=== PATIENT | female | born 1935 | race Caucasian/White ===

== ENCOUNTER 2017-10-01 20:54 | Emergency (ER) | payer MEDICARE ==
[2017-10-01] MEDS ORDERED: Silver Nitrate/Potassium Nitr* 1 EA STICK ONE ×2 (21:16)
[2017-10-01] MEDS ORDERED: Lidocaine 2% JELLY* 6 ML JELLY TOPICAL ONE (21:22)
[2017-10-01] MEDS ORDERED: Amoxicillin/Clavulanate TAB* 875 MG PO ONE (21:33)
[2017-10-01 22:26] LABS: INR 3.97 (0.77-1.02)
--- NOTE | 2017-10-01 23:13 | ED ---
Mikel Arevalo Gabriel, scribed for Francisco Castelan MD on 10/01/17 at 2118 . Throat Pain/Nasal Congestion - HPI Summary HPI Summary: This patient is a 82 year old F BIBA to [facility] with a chief complaint of epistaxis that began 3 hours ago. Pt states she blew her nose then it began bleeding. Pt takes warfarin. - History of Current Complaint Chief Complaint: EDEpistaxis Time Seen by Provider: 10/01/17 21:06 Hx Obtained From: Patient Onset/Duration: Lasting Hours, Still Present Severity: Mild Cough: None - Allergies/Home Medications Allergies/Adverse Reactions: Allergies Allergy/AdvReac Type Severity Reaction Status Date / Time amoxicillin Allergy Nausea Verified 10/01/17 21:44 codeine Allergy Unknown Verified 10/01/17 21:44 Reaction Details iodine Allergy Swelling Verified 10/01/17 21:44 meperidine [From Demerol] Allergy Unknown Verified 10/01/17 21:44 Reaction Details morphine Allergy Unknown Verified 10/01/17 21:44 Reaction Details moxifloxacin [From Avelox] Allergy Unknown Verified 10/01/17 21:44 Reaction Details sertraline [From Zoloft] Allergy Unknown Verified 10/01/17 21:44 Reaction Details PMH/Surg Hx/FS Hx/Imm Hx Endocrine/Hematology History: Reports: 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 Denies: Hx Anticoagulant Therapy, Hx Systemic Lupus Erythematosus, Hx Thyroid Disease, Hx Anemia Cardiovascular History: Reports: Hx Angina, Hx Deep Vein Thrombosis, Hx Hypercholesterolemia, Hx Rheumatic Fever - as a child, Other Cardiovascular Problems/Disorders - pericarditis w surgical intervention to remove fluid. Denies: Hx Aneurysm, Hx Auto Implanted Cardiovert Defib, Hx Cardiac Arrest, Hx Congestive Heart Failure, Hx Coronary Artery Disease, Hx Hypertension, Hx Myocardial Infarction, Hx Pacemaker/ICD, Hx Valvular Heart Disease Respiratory History: Reports: Other Respiratory Problems/Disorders - SOB Denies: Hx Asthma, Hx Chronic Bronchitis, Hx Chronic Obstructive Pulmonary Disease (COPD), Hx Pneumonia GI History: Reports: Hx Diverticulosis, Hx Gastroesophageal Reflux Disease, Other GI Disorders - DIVERTICULOSIS Denies: Hx Gall Bladder Disease, Hx Irritable Bowel, Hx Ulcer History: Denies: Hx Dialysis, Hx Kidney Infection, Hx Kidney Stones, Hx Renal Disease Musculoskeletal History: Reports: Hx Arthritis, Hx Back Problems, Hx Bursitis, Hx Osteoporosis, Other Musculoskeletal History - Osteopenia, Osteoarthritis, Lymphedema in lower extremities bilaterally. Denies: Hx Rheumatoid Arthritis Sensory History: Reports: Hx Cataracts, Hx Contacts or Glasses, Hx Vision Problem Denies: Hx Eye Injury, Hx Eye Prosthesis, Hx Glaucoma, Hx Legally Blind, Hx Macular Degeneration, Hx Deafness, Hx Hearing Aid, Hx Hearing Problem Opthamlomology History: Reports: Hx Cataracts, Hx Contacts or Glasses, Hx Vision Problem Denies: Hx Eye Injury, Hx Eye Prosthesis, Hx Glaucoma, Hx Legally Blind, Hx Macular Degeneration Neurological History: Reports: Other Neuro Impairments/Disorders - low back pain , hx of back surgeries Denies: Hx Headaches, Hx Migraine, Hx Seizures Psychiatric History: Reports: Other Psychiatric Issues/Disorders - 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 RIGHT TOTAL KNEE REPLACEMENT , BILAT KNEE REPAIR;. BACK SURGERIES, RIGHT ANKLE ( SCREW IS NOW REMOVED);. RIGHT SHOULDER ROTATOR CUFF;. VECTASEAL;. BLADDER REPAIR ;. HYSTERECTOMY;. JASEN FILTER - 1.5T; Hx Anesthesia Reactions: No Infectious Disease History: Yes Infectious Disease History: Denies: Traveled Outside the [place] in Last 30 Days - Family History Known Family History: Positive: None Family History: R & n/C - Social History Lives: With Family Alcohol Use: Rare Alcohol Amount: none that pt identifies Hx Substance Use: No Substance Use Type: Reports: None Hx Tobacco Use: No Smoking Status (MU): Never Smoked Tobacco Have You Smoked in the Last Year: No Review of Systems Negative: Fever Positive: Epistaxis All Other Systems Reviewed And Are Negative: Yes Physical Exam - Summary Physical Exam Summary: VITAL SIGNS: Reviewed. GENERAL: Patient is a elderly obese female who is lying comfortable in the stretcher. Patient is not in any acute respiratory distress. HEAD AND FACE: No signs of trauma. No ecchymosis, hematomas or skull depressions. No sinus tenderness. EYES: PERRLA, EOMI x 2, No injected conjunctiva, no nystagmus. EARS: Hearing grossly intact. Ear canals and tympanic membranes are within normal limits. MOUTH: the right nostril is raw with no active bleeding NECK: Supple, trachea is midline, no adenopathy, no JVD, no carotid bruit, no c- spine tenderness, neck with full ROM. CHEST: Symmetric, no tenderness at palpation LUNGS: Clear to auscultation bilaterally. No wheezing or crackles. CVS: Regular rate and rhythm, S1 and S2 present, no murmurs or gallops appreciated. ABDOMEN: Soft, non-tender. No signs of distention. No rebound no guarding, and no masses palpated. Bowel sounds are normal. EXTREMITIES: FROM in all major joints bialteral LE edema with chronic venous stasis changes NEURO: Alert and oriented x 3. No acute neurological deficits. Speech is normal and follows commands. SKIN: Dry and warm Triage Information Reviewed: Yes Vital Signs On Initial Exam: Initial Vitals Temp Pulse Resp BP Pulse Ox 98.1 F 110 20 127/52 90 10/01/17 21:01 10/01/17 21:01 10/01/17 21:01 10/01/17 21:01 10/01/17 21:01 Vital Signs Reviewed: Yes Procedures - Procedure Summary Procedure Summary: I attempted to cauterize the right nostril with silver nitrate but it was unsuccessful. I placed a rhino rocket, 4.5cm Diagnostics - Vital Signs Vital Signs Temp Pulse Resp BP Pulse Ox 10/01/17 21:01 98.1 F 110 20 127/52 90 - Laboratory Lab Statement: Any lab studies that have been ordered have been reviewed, and results considered in the medical decision making process. Re-Evaluation - Re-Evaluation First Eval Re-Evaluation Time: 22:53 Change: Improved Comment: The patients bleeding is controlled, her INR is 3.97, and I discussed discharge with the patient. EENT Course/Dx - Course Assessment/Plan: This patient is a 82 year old F BIBA to [facility] with a chief complaint of epistaxis that began 3 hours ago. Pt states she blew her nose then it began bleeding. Pt takes warfarin. Test results with no significant abnormalities except for an APTT of 54. In the ED course the patient was given Augmentin, lidocaine, and silver nitrate. The bleeding was controlled with a rhino rocket, dx epistaxis. Patient will be discharged with prescription for Augmentin and follow up from ENT. The patient is agreeable with this plan. - Diagnoses Provider Diagnoses: Epistaxis Discharge - Sign-Out/Discharge Documenting (check all that apply): Discharge - Discharge Plan Condition: Stable Disposition: HOME Prescriptions: Amoxicillin/Clavulanate TAB* [Augmentin TAB 875*] 875 mg PO BID #14 tab Patient Education Materials: Nosebleed (ED) Referrals: Karson Massey MD [Medical Doctor] - 3 Days Additional Instructions: RETURN TO THE EMERGENCY DEPARTMENT FOR CHANGING OR WORSENING SYMPTOMS. The documentation as recorded by the Mikel feldman Gabriel accurately reflects the service I personally performed and the decisions made by , Francisco Castealn MD.
[2017-10-02 00:33] VITALS: BP 124/37
== END 2017-10-02 00:33 | disposition home or self-care (01) ==
LOC: ED 20:54
DX: R04.0 Epistaxis (principal); Z51.81 Encounter for therapeutic drug level monitoring; I82.409 Acute embolism and thrombosis of unspecified deep veins of unspecified lower extremity; Z79.01 Long term (current) use of anticoagulants
CPT/HCPCS: 36415; 85610; 85730; 99283; A9270-GY

== ENCOUNTER 2017-12-13 17:02 | Inpatient (IN) | payer MEDICARE ==
[2017-12-13] MEDS ORDERED: NS 0.9% 1000 ML* 1,000 ML IV ONE (17:46)
[2017-12-13 18:13] LABS: Hematocrit 30 % (35-47); Hemoglobin 9.3 g/dl (12.0-16.0); Mean Corpuscular HGB Conc 31 g/dl (31-36); Mean Corpuscular Hemoglobin 23 pg (27-31); Mean Corpuscular Volume 74 fL (80-97); Mean Platelet Volume 7.5 um3 (7.4-10.4); Platelet Count 334 10^3/ul (150-450); Red Blood Count 4.07 10^6/ul (4.00-5.40); Red Cell Distribution Width 17 % (10.5-15); White Blood Count 8.2 10^3/ul (3.5-10.8)
[2017-12-13 18:22] LABS: EGFR Non-African American 67.1 (>60)
[2017-12-13 18:40] LABS: ABS Basophils 0 10^3/ul (0-0.2); ABS Eosinophils 0.1 10^3/ul (0-0.6); ABS Lymphocytes 0.5 10^3/ul (1.0-4.8); ABS Monocytes 0.7 10^3/ul (0-0.8); ABS Neutrophils 6.9 10^3/ul (1.5-7.7); ABS Nucleated RBC 0 10^3/ul; Eosinophil % 1.1 % (0-6); Lymphocyte % 5.5 % (25-47); Nucleated Red Blood Cells % 0
--- NOTE | 2017-12-13 19:11 | RAD ---
INDICATION: Weakness. COMPARISON: Comparison is made with a prior study from January 23, 2016. TECHNIQUE: A portable view of the chest was obtained. FINDINGS: Cardiac and mediastinal contours appear to be within normal limits. The lungs are underinflated. There are small bibasilar infiltrates which appear similar to the prior study. IMPRESSION: LOW LUNG VOLUMES, SMALL BIBASILAR INFILTRATES.
[2017-12-13 19:28] LABS: Urine Appearance Clear; Urine Blood Negative (Negative); Urine Color Yellow; Urine Ketones Negative (Negative); Urine Protein Negative (Negative); Urine Urobilinogen Negative (Negative)
[2017-12-13] MEDS ORDERED: cefTRIAXone(*) 1 GM in NS 0.9% 50 ML* 50 ML IVPB ONE (19:30)
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
[2017-12-13] MEDS ORDERED: Ondansetron ODT TAB* 4 MG PO PRN (23:45)
[2017-12-13] MEDS ORDERED: Albuterol 2.5 MG/3 ML NEB.SOL* (0.083%) INH PRN (23:45)
[2017-12-14 00:01] LABS: Hematocrit for Retic CNT 30 % (35-47); Immature Retic Fraction 0.48; RBC Retic Count 4.08 10^6/ul (4.6-6.2)
[2017-12-14] MEDS: Warfarin TAB(*) 5 MG PO SCH ×2 (00:18→17:43)
[2017-12-14] MEDS: NS 0.9% 1000 ML* 1,000 ML IV SCH ×2 (01:54→23:10)
[2017-12-14] MEDS: HYDROmorphone TAB* 2 MG PO PRN ×3 (01:56→17:43)
[2017-12-14 07:24] LABS: EGFR Non-African American 72.1 (>60)
[2017-12-14 07:28] LABS: ABS Basophils 0 10^3/ul (0-0.2); ABS Eosinophils 0.2 10^3/ul (0-0.6); ABS Lymphocytes 0.8 10^3/ul (1.0-4.8); ABS Monocytes 0.8 10^3/ul (0-0.8); ABS Neutrophils 5.1 10^3/ul (1.5-7.7); ABS Nucleated RBC 0 10^3/ul; Eosinophil % 2.4 % (0-6); Hematocrit 29 % (35-47); Hemoglobin 8.9 g/dl (12.0-16.0); Lymphocyte % 11.6 % (25-47); Mean Corpuscular HGB Conc 31 g/dl (31-36); Mean Corpuscular Hemoglobin 23 pg (27-31); Mean Corpuscular Volume 74 fL (80-97); Mean Platelet Volume 7.8 um3 (7.4-10.4); Nucleated Red Blood Cells % 0; Platelet Count 318 10^3/ul (150-450); Red Blood Count 3.92 10^6/ul (4.00-5.40); Red Cell Distribution Width 17 % (10.5-15); White Blood Count 6.9 10^3/ul (3.5-10.8)
[2017-12-14] MEDS: Insulin LISPRO* 1 UNITS UNIT SUBCUT SCH ×4 (08:40→20:34)
[2017-12-14] MEDS: Omeprazole CAP* 20 MG PO SCH (08:59)
[2017-12-14] MEDS: Docusate CAP* 100 MG PO SCH ×2 (08:59→20:23)
[2017-12-14] MEDS: Spironolactone TAB* 25 MG PO SCH (08:59)
[2017-12-14] MEDS: Furosemide TAB* 40 MG PO SCH (08:59)
[2017-12-14] MEDS: Methadone TAB* 10 MG PO SCH ×3 (08:59→20:23)
[2017-12-14] MEDS: Saline NASAL SPRAY 0.65%* BTL BOTH NARES PRN (15:51)
[2017-12-14] MEDS: cefTRIAXone VIAL(*) 1,000 MG in NS 0.9% 50 ML* 50 ML IVPB SCH (20:10)
[2017-12-15] MEDS: HYDROmorphone TAB* 2 MG PO PRN ×3 (00:01→08:13)
[2017-12-15] MEDS: Omeprazole CAP* 20 MG PO SCH ×2 (08:14→17:41)
[2017-12-15] MEDS: Furosemide TAB* 40 MG PO SCH (08:14)
[2017-12-15] MEDS: Docusate CAP* 100 MG PO SCH ×2 (08:14→20:10)
[2017-12-15] MEDS: Methadone TAB* 10 MG PO SCH ×3 (08:15→20:10)
[2017-12-15] MEDS: Spironolactone TAB* 25 MG PO SCH (08:15)
[2017-12-15] MEDS: Insulin LISPRO* 1 UNITS UNIT SUBCUT SCH ×4 (08:15→20:59)
[2017-12-15] MEDS ORDERED: HYDROmorphone TAB* 4 MG PO PRN (13:00)
[2017-12-15] MEDS: Ferrous Sulfate TAB* 325 MG PO SCH (13:16)
[2017-12-15] MEDS: Warfarin TAB(*) 5 MG PO SCH (17:41)
[2017-12-15] MEDS: cefTRIAXone VIAL(*) 1,000 MG in NS 0.9% 50 ML* 50 ML IVPB SCH (20:27)
[2017-12-15] MEDS: Acetaminophen TAB* 325 MG PO PRN (21:48)
[2017-12-15] MEDS: Melatonin 3 MG TAB PO PRN (21:49)
[2017-12-15] MEDS ORDERED: HYDROmorphone INJ* 2 MG/ML CARPUJECT SYRINGE IV ONE (23:00)
[2017-12-16] MEDS: Saline NASAL SPRAY 0.65%* BTL BOTH NARES PRN ×2 (00:07→21:51)
[2017-12-16 00:08] LABS: INR 2.61 (0.77-1.02)
[2017-12-16] MEDS ORDERED: HYDROmorphone TAB* 4 MG PO PRN (01:02)
[2017-12-16] MEDS: HYDROmorphone INJ* 2 MG/ML CARPUJECT SYRINGE IV PRN ×2 (04:21→10:53)
[2017-12-16] MEDS: Acetaminophen TAB* 325 MG PO PRN (05:54)
[2017-12-16 06:04] LABS: Hematocrit 30 % (35-47); Hemoglobin 9.4 g/dl (12.0-16.0); Mean Corpuscular HGB Conc 31 g/dl (31-36); Mean Corpuscular Hemoglobin 23 pg (27-31); Mean Corpuscular Volume 74 fL (80-97); Mean Platelet Volume 7.8 um3 (7.4-10.4); Platelet Count 332 10^3/ul (150-450); Red Blood Count 4.08 10^6/ul (4.00-5.40); Red Cell Distribution Width 17 % (10.5-15); White Blood Count 14.9 10^3/ul (3.5-10.8)
[2017-12-16 06:15] LABS: EGFR Non-African American 76.7 (>60)
--- NOTE | 2017-12-16 07:44 | RAD ---
HISTORY: chest pain COMPARISONS: August 15, 2017 VIEWS: 1: frontal portable view of the chest at 11:20 PM FINDINGS: LINES AND TUBES: None. CARDIOMEDIASTINAL SILHOUETTE: The cardiomediastinal silhouette is stable. PLEURA: The costophrenic angles are sharp. No pleural abnormalities are noted. LUNG PARENCHYMA: There has been progression of confluent alveolar opacification of the right lung base. There is persistent patchy alveolar opacification of the left lung base, stable. ABDOMEN: The upper abdomen is clear. There is no subphrenic gas. BONES AND SOFT TISSUES: There is postsurgical change to the right shoulder. IMPRESSION: PROGRESSION OF RIGHT LOWER LUNG CONSOLIDATION. PERSISTENT LEFT LOWER LUNG ATELECTASIS VERSUS CONSOLIDATION
[2017-12-16] MEDS: Ferrous Sulfate TAB* 325 MG PO SCH (10:06)
[2017-12-16] MEDS: Docusate CAP* 100 MG PO SCH ×2 (10:06→21:35)
[2017-12-16] MEDS: Furosemide TAB* 40 MG PO SCH (10:06)
[2017-12-16] MEDS: Spironolactone TAB* 25 MG PO SCH (10:06)
[2017-12-16] MEDS: HYDROmorphone TAB* 4 MG PO PRN (10:07)
[2017-12-16] MEDS: Methadone TAB* 10 MG PO SCH ×3 (10:07→21:35)
[2017-12-16] MEDS: Insulin LISPRO* 1 UNITS UNIT SUBCUT SCH ×4 (10:12→21:30)
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
[2017-12-16] MEDS ORDERED: Ondansetron 40 MG VIAL* 2 MG/ML 20 ML VIAL IV PRN (10:53)
[2017-12-16] MEDS: Metoprolol Succinate XL TAB* 25 MG PO SCH (13:12)
[2017-12-16] MEDS: Azithromycin TAB* 250 MG PO SCH (13:13)
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
--- NOTE | 2017-12-16 16:45 | ECHO ---
Patient: ASAD FINNEGAN [facility] Rec#: [id number] : 1935 Date: 12/16/2017 Age: 82y Height: 154.94 cm / 61.0 in Weight: 118.84 kg / 261.9 lbs Sex: F BSA: 2.12 Room#: [facility] Admit Date#: 12/14/2017 Type: Inpatient Referring: Tristen Hayden MD Reading: Mike Gaitan MD [employer] Associate: Mia Cha,RDCS,RDMS CC: Samara Hackett MD Transthoracic Echocardiogram Indication: CP BP: 145/70 HR: 85 Rhythm: NSR Findings History: Bilateral lower extremity lymphedema, factor V Leiden, DVT/PE, COPD, DM, HLD, pericarditis Technical Comments: The study quality is fair. Left Ventricle: The left ventricular chamber size is normal. Mild to moderate concentric left ventricular hypertrophy is observed. Global left ventricular wall motion and contractility are within normal limits. Left ventricular systolic function is at the lower limits of normal. The estimated ejection fraction is 50-55%. There is septal flattening of the interventricular septum consistent with right ventricular volume or pressure overload. Abnormal left ventricular diastolic filling is observed, consistent with impaired relaxation. Left Atrium: The left atrium is mildly dilated. Right Ventricle: The right ventricular chamber size and systolic function are within normal limits. The right ventricle wall thickness is mildly increased. The right ventricular free wall has increased brightness. Right Atrium: The right atrium is not well visualized. Aortic Valve: There is no evidence of aortic valve thickening. Systolic excursion of the aortic valve is normal. There is a trace of aortic regurgitation. There is no evidence of aortic stenosis. Mitral Valve: Mild mitral annular calcification present. There is a trace of mitral regurgitation. There is no evidence of mitral stenosis. Tricuspid Valve: The tricuspid valve leaflets are normal. There is trace tricuspid regurgitation. There is evidence of mild pulmonary hypertension. Pulmonic Valve: The pulmonic valve structure is not well visualized. There is no evidence of pulmonic valve thickening. There is mild pulmonic regurgitation. Pericardium: There is no significant pericardial effusion. Aorta: The ascending aorta is not well visualized. There is no dilatation of the aortic arch. The aortic root is normal in size. Pulmonary Artery: The main pulmonary artery is not well visualized. Venous: The inferior vena cava appears normal in size. There is a greater than 50% respiratory change in the inferior vena cava dimension. Summary: There are no significant changes when compared to the previous study done on 12/22/13 Conclusions The study quality is fair. Mild to moderate concentric left ventricular hypertrophy is observed. The estimated ejection fraction is 50-55%. Global left ventricular wall motion and contractility are within normal limits. Left ventricular systolic function is at the lower limits of normal. The estimated ejection fraction is 50-55%. The right ventricular chamber size and systolic function are within normal limits. There is no evidence of aortic valve thickening. There is a trace of aortic regurgitation. There is a trace of mitral regurgitation. The tricuspid valve leaflets are normal. There is trace tricuspid regurgitation. There is evidence of mild pulmonary hypertension. There is no significant pericardial effusion. The ascending aorta is not well visualized. Measurements Name Value Normal Range RVIDd (AP) 2D 2.9 cm (0.9 - 2.6) RVDdMajor (2D) 3 cm (2.2 - 4.4) IVSd (2D) 1.4 cm (0.6 - 1) LVPWd (2D) 1.3 cm (0.6 - 1) LVIDd (2D) 4.2 cm (3.6 - 5.4) LVIDs (2D) 2.3 cm - LV FS (2D) 45 % (25 - 45) Aortic Annulus 2 cm (1.4 - 2.6) Ao root diameter (2D) 2.9 cm (2.1 - 3.5) Aortic arch 3.2 cm (1.8 - 3.4) LA dimension (AP) 2D 4.3 cm (2.3 - 3.8) LAd ISD 4CH 5.4 cm (2.9 - 5.3) LA ISD 4CH W 4.6 cm (2.5 - 4.5) Name Value Normal Range LA ESV SP 4CH (A/L) 60.34 ml - LA ESV SP 2CH (A/L) 70.67 ml - LA ESV BP (A/L) 67.14 ml - LA ESV BP (A/L) index 32 ml/m2 - LA ESV SP 4CH (MOD) 57.31 ml - LA ESV SP 2CH (MOD) 68.69 ml - Name Value Normal Range MV E-wave Vmax 0.8 m/sec - MV deceleration time 137 msec - MV A-wave Vmax 1 m/sec - MV E:A ratio 0.8 ratio - LV septal e' Vmax 0.06 m/sec - LV lateral e' Vmax 0.07 m/sec - LV E:e' septal ratio 14.5 ratio - LV E:e' lateral ratio 11 ratio - Name Value Normal Range AV Vmax 1.8 m/sec - AV VTI 35 cm - AV peak gradient 13 mmHg - AV mean gradient 6.8 mmHg - LVOT Vmax 1.1 m/sec - LVOT VTI 21.7 cm - LVOT peak gradient 5 mmHg - LVOT mean gradient 2.6 mmHg - CHAITANYA Vmax 0.6 m/sec - Name Value Normal Range MV Vmax 1.1 m/sec - MV VTI 29.5 cm - MV peak gradient 5 mmHg - MV mean gradient 2 mmHg - MV PHT 60 msec - MVA (PHT) 3.7 cm2 - Name Value Normal Range TR Vmax 2.6 m/sec - TR peak gradient 27 mmHg - RAP 15 mmHg - RVSP 42 mmHg - IVC diameter 2.3 cm - Name Value Normal Range PV Vmax 0.7 m/sec - PV peak gradient 2 mmHg -
[2017-12-16] MEDS: Omeprazole CAP* 20 MG PO SCH (18:18)
[2017-12-16] MEDS: Warfarin TAB(*) 5 MG PO SCH (18:18)
[2017-12-16] MEDS: cefTRIAXone VIAL(*) 1,000 MG in NS 0.9% 50 ML* 50 ML IVPB SCH (21:35)
[2017-12-17] MEDS: HYDROmorphone TAB* 4 MG PO PRN ×3 (00:59→17:37)
[2017-12-17] MEDS: Acetaminophen TAB* 325 MG PO PRN (02:15)
[2017-12-17 05:55] LABS: Hematocrit 30 % (35-47); Hemoglobin 9.2 g/dl (12.0-16.0); Mean Corpuscular HGB Conc 31 g/dl (31-36); Mean Corpuscular Hemoglobin 23 pg (27-31); Mean Corpuscular Volume 75 fL (80-97); Mean Platelet Volume 7.7 um3 (7.4-10.4); Platelet Count 339 10^3/ul (150-450); Red Blood Count 3.98 10^6/ul (4.00-5.40); Red Cell Distribution Width 18 % (10.5-15); White Blood Count 10.7 10^3/ul (3.5-10.8)
[2017-12-17 06:18] LABS: EGFR Non-African American 79.2 (>60)
[2017-12-17] MEDS: Insulin LISPRO* 1 UNITS UNIT SUBCUT SCH ×4 (08:46→20:45)
[2017-12-17] MEDS: Azithromycin TAB* 250 MG PO SCH (08:59)
[2017-12-17] MEDS: Metoprolol Succinate XL TAB* 25 MG PO SCH (08:59)
[2017-12-17] MEDS: Docusate CAP* 100 MG PO SCH ×2 (09:00→20:41)
[2017-12-17] MEDS: Spironolactone TAB* 25 MG PO SCH (09:00)
[2017-12-17] MEDS: Furosemide TAB* 40 MG PO SCH (09:00)
[2017-12-17] MEDS: Methadone TAB* 10 MG PO SCH ×3 (09:00→20:41)
[2017-12-17] MEDS: Ferrous Sulfate TAB* 325 MG PO SCH (09:00)
[2017-12-17] MEDS: Omeprazole CAP* 20 MG PO SCH (17:31)
[2017-12-17] MEDS: Warfarin TAB(*) 5 MG PO SCH (17:31)
[2017-12-17] MEDS: cefTRIAXone VIAL(*) 1,000 MG in NS 0.9% 50 ML* 50 ML IVPB SCH (20:41)
[2017-12-18] MEDS: Acetaminophen TAB* 325 MG PO PRN (02:57)
[2017-12-18] MEDS: HYDROmorphone TAB* 4 MG PO PRN ×3 (02:57→17:08)
[2017-12-18] MEDS: Insulin LISPRO* 1 UNITS UNIT SUBCUT SCH ×4 (07:27→20:37)
[2017-12-18] MEDS: Azithromycin TAB* 250 MG PO SCH (07:50)
[2017-12-18] MEDS: Spironolactone TAB* 25 MG PO SCH (07:50)
[2017-12-18] MEDS: Ferrous Sulfate TAB* 325 MG PO SCH (07:50)
[2017-12-18] MEDS: Metoprolol Succinate XL TAB* 25 MG PO SCH (07:50)
[2017-12-18] MEDS: Furosemide TAB* 40 MG PO SCH (07:50)
[2017-12-18] MEDS: Methadone TAB* 10 MG PO SCH ×3 (07:51→20:37)
[2017-12-18] MEDS: Docusate CAP* 100 MG PO SCH ×2 (07:51→20:37)
--- NOTE | 2017-12-18 10:46 | RAD ---
INDICATION: 82-year-old. Follow-up infiltrates COMPARISON: Chest x-ray December 15, 2017 TECHNIQUE: PA and lateral dual-energy views were obtained. FINDINGS: Bones/Soft Tissues: There are no acute bony findings. There is osteopenia with kyphosis Cardiomediastinal: The cardiac silhouette, central pulmonary vessels, and interstitium are prominent compatible with interstitial congestion. Lungs: There is no focal consolidation. Pleura: There are bilateral pleural effusions. Other: None IMPRESSION: VASCULAR CONGESTIVE FINDINGS WITH BILATERAL PLEURAL EFFUSIONS. GIVEN THE DIFFUSE FINDINGS, COEXISTENT INFILTRATES ARE NOT EXCLUDED RADIOGRAPHICALLY. THERE APPEARS BE MILD INTERVAL WORSENING.
[2017-12-18] MEDS: Polyethylene Glycol 3350* 17 GM PACKET PO PRN (14:25)
[2017-12-18] MEDS: Albuterol HFA INHALER* 8 gm MDI INH PRN (14:27)
[2017-12-18] MEDS: Warfarin TAB(*) 5 MG PO SCH (17:07)
[2017-12-18] MEDS: Omeprazole CAP* 20 MG PO SCH (17:07)
[2017-12-18] MEDS: Saline NASAL SPRAY 0.65%* BTL BOTH NARES PRN ×2 (19:49→23:42)
[2017-12-18] MEDS: cefTRIAXone VIAL(*) 1,000 MG in NS 0.9% 50 ML* 50 ML IVPB SCH (20:37)
[2017-12-19] MEDS: Acetaminophen TAB* 325 MG PO PRN (01:20)
[2017-12-19] MEDS: Melatonin 3 MG TAB PO PRN (01:22)
[2017-12-19] MEDS: HYDROmorphone TAB* 4 MG PO PRN (03:06)
[2017-12-19 06:50] LABS: INR 4.45 (0.77-1.02)
[2017-12-19] MEDS: Insulin LISPRO* 1 UNITS UNIT SUBCUT SCH ×4 (09:36→21:27)
[2017-12-19] MEDS: Methadone TAB* 10 MG PO SCH ×3 (09:37→21:26)
[2017-12-19] MEDS: Azithromycin TAB* 250 MG PO SCH (09:39)
[2017-12-19] MEDS: Metoprolol Succinate XL TAB* 25 MG PO SCH (09:39)
[2017-12-19] MEDS: Polyethylene Glycol 3350* 17 GM PACKET PO PRN (09:41)
--- NOTE | 2017-12-19 10:02 | PN ---
Progress Note - Progress Note Date of Service: 12/19/17 SOAP: Subjective: CC: leukocytosis HPI: 82 year old woman with lymphedema, incr WBC and CRP and incr O2 requirement. She has had antibiotics for a few days. Previous chest pain is gone, no cough. Feels more energy and appetite improved. No rash or diarrhea. Objective: Vital Signs Temp 37.1 C 12/19/17 03:01 Pulse 68 12/19/17 09:02 Resp 20 12/19/17 09:37 BP 131/67 12/19/17 03:01 Pulse Ox 95 12/19/17 09:02 Intake & Output 12/18/17 12/19/17 12/19/17 18:59 06:59 18:59 Intake Total 120 480 Output Total 500 Balance 120 -20 Weight 251 lb 14.4 oz Intake: IV Fluids 30 NS (0.9%) 30 IVPB 50 ABX - CEFTRIAXONE 50 Oral 120 400 Output: Urine 500 Other: Estimated Void Large Large # Bowel Movements 2 Estimated Stool Amount Medium # Voids 8 3 Gen:awake, no distress HEENT: no thrush Heart:RRR no murmur Lungs:no wheeze or rale Abd:+BS NTND soft Skin: no rash MSK: no spine tenderness Assessment: 1. Community acquired pneumonia, with leukocytosis and incr CRP both improving 2. Bilateral LE lymphedema 3. morbid obesity 4. chronic hypoxemic resp failure Plan: 1. ceftriaxone day 11/04 and azithro day 10/03 (ordered) Discussed with Dr Hackett
[2017-12-19] MEDS: Ferrous Sulfate TAB* 325 MG PO SCH (10:09)
[2017-12-19] MEDS: Spironolactone TAB* 25 MG PO SCH (10:10)
[2017-12-19] MEDS: Furosemide TAB* 40 MG PO SCH (10:10)
[2017-12-19] MEDS: Docusate CAP* 100 MG PO SCH ×2 (10:10→21:26)
[2017-12-19] MEDS: Magnesium Hydroxide LIQ* 30 ML UDC PO SCH (13:09)
[2017-12-19] MEDS: Saline NASAL SPRAY 0.65%* BTL BOTH NARES PRN (14:56)
[2017-12-19] MEDS: Omeprazole CAP* 20 MG PO SCH (17:02)
[2017-12-19] MEDS: HYDROmorphone INJ* 2 MG/ML CARPUJECT SYRINGE IV PRN (17:03)
[2017-12-19] MEDS: cefTRIAXone VIAL(*) 1,000 MG in NS 0.9% 50 ML* 50 ML IVPB SCH (20:21)
[2017-12-19] MEDS: Albuterol HFA INHALER* 8 gm MDI INH PRN (23:24)
[2017-12-20] MEDS: HYDROmorphone TAB* 4 MG PO PRN ×2 (00:59→19:53)
[2017-12-20] MEDS: Insulin LISPRO* 1 UNITS UNIT SUBCUT SCH ×4 (08:20→21:11)
[2017-12-20] MEDS: Azithromycin TAB* 250 MG PO SCH ×2 (10:02→13:08)
[2017-12-20] MEDS: Spironolactone TAB* 25 MG PO SCH (10:03)
[2017-12-20] MEDS: Docusate CAP* 100 MG PO SCH ×2 (10:04→21:00)
[2017-12-20] MEDS: Ferrous Sulfate TAB* 325 MG PO SCH (10:41)
[2017-12-20] MEDS: Furosemide TAB* 40 MG PO SCH (10:41)
[2017-12-20] MEDS: Methadone TAB* 10 MG PO SCH ×3 (10:42→20:51)
[2017-12-20] MEDS: Magnesium Hydroxide LIQ* 30 ML UDC PO SCH (10:43)
[2017-12-20] MEDS: Metoprolol Succinate XL TAB* 25 MG PO SCH (13:20)
[2017-12-20 14:24] LABS: INR 2.88 (0.77-1.02)
[2017-12-20 14:32] LABS: Hematocrit 36 % (35-47); Hemoglobin 11.1 g/dl (12.0-16.0); Mean Corpuscular HGB Conc 31 g/dl (31-36); Mean Corpuscular Hemoglobin 23 pg (27-31); Mean Corpuscular Volume 75 fL (80-97); Mean Platelet Volume 7.7 um3 (7.4-10.4); Platelet Count 449 10^3/ul (150-450); Red Blood Count 4.79 10^6/ul (4.00-5.40); Red Cell Distribution Width 17 % (10.5-15); White Blood Count 7.2 10^3/ul (3.5-10.8)
[2017-12-20 14:35] LABS: EGFR Non-African American 80.5 (>60)
[2017-12-20] MEDS ORDERED: Warfarin TAB(*) 2.5 MG PO ONE (17:00)
[2017-12-20] MEDS: Omeprazole CAP* 20 MG PO SCH (17:06)
[2017-12-20] MEDS: cefTRIAXone VIAL(*) 1,000 MG in NS 0.9% 50 ML* 50 ML IVPB SCH (19:48)
[2017-12-21 06:41] LABS: INR 2.18 (0.77-1.02)
[2017-12-21] MEDS: Insulin LISPRO* 1 UNITS UNIT SUBCUT SCH ×4 (08:56→20:54)
[2017-12-21] MEDS: Azithromycin TAB* 250 MG PO SCH (09:02)
[2017-12-21] MEDS: Ferrous Sulfate TAB* 325 MG PO SCH (09:05)
[2017-12-21] MEDS: Docusate CAP* 100 MG PO SCH ×2 (09:06→20:55)
[2017-12-21] MEDS: Spironolactone TAB* 25 MG PO SCH (09:08)
[2017-12-21] MEDS: Metoprolol Succinate XL TAB* 25 MG PO SCH (09:10)
[2017-12-21] MEDS: Furosemide TAB* 40 MG PO SCH (09:12)
[2017-12-21] MEDS: Methadone TAB* 10 MG PO SCH (09:16)
[2017-12-21] MEDS: Magnesium Hydroxide LIQ* 30 ML UDC PO SCH (09:21)
--- NOTE | 2017-12-21 11:52 | PN ---
Subjective - Subjective Reason for Note: Progress Note History: I am following Asad Dolan over the weekend as an attending physician in Dr. Samara Hackett's absence. She has signed her out in detail. She has a UTI and chronic lymphedema. She is receiving IV antibacterials. Today, she doesn't have any pain. She has no adverse effects of antibacterials. She is not having any new pain. She has chronic lymphedema of her legs. She is not coughing or bringing up sputum. 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 GERD (gastroesophageal reflux disease) (Chronic) K21.9 History of pulmonary embolism (Chronic) Z86.711 Iron deficiency anemia (Chronic) D50.9 Low back pain (Chronic) M54.5 Lymphedema of both lower extremities (Chronic) I89.0 Morbid obesity with BMI of 45.0-49.9, adult (Chronic) E66.01, Z68.42 Osteoarthritis (Chronic) M19.90 T2DM (type 2 diabetes mellitus) (Chronic) Warfarin anticoagulation (Chronic) Z79.01 Current Medications: Current Medications Acetaminophen (Tylenol Tab*) 650 mg PO Q6H PRN PRN Reason: FEVER/PAIN Last Admin: 12/19/17 01:20 Dose: 650 mg Albuterol (Ventolin 2.5 Mg/3 Ml Neb.Marie*) 2.5 mg INH Q2H PRN PRN Reason: SOB/WHEEZING Albuterol (Ventolin Hfa Inhaler*) 2 puff INH Q4H PRN PRN Reason: SHORTNESS OF BREATH Last Admin: 12/19/17 23:24 Dose: 2 puff Azithromycin (Zithromax Tab*) 250 mg PO DAILY [facility] Last Admin: 12/21/17 09:02 Dose: 250 mg Docusate Sodium (Colace Cap*) 200 mg PO BID [facility] Last Admin: 12/21/17 09:06 Dose: 200 mg Ferrous Sulfate (Ferrous Sulfate Tab*) 325 mg PO DAILY [facility] Last Admin: 12/21/17 09:05 Dose: 325 mg Furosemide (Lasix Tab*) 80 mg PO DAILY [facility] Last Admin: 12/21/17 09:12 Dose: 80 mg Hydromorphone HCl (Dilaudid Inj*) 2 mg IV Q4H PRN PRN Reason: PAIN Last Admin: 12/19/17 17:03 Dose: 2 mg Hydromorphone HCl (Dilaudid Tab*) 8 mg PO Q4H PRN PRN Reason: PAIN Last Admin: 12/20/17 19:53 Dose: 8 mg Ceftriaxone Sodium 1,000 mg/ (Sodium Chloride) 50 mls @ 200 mls/hr IVPB Q24H [facility] Stop: 12/21/17 23:59 Last Admin: 12/20/17 19:48 Dose: 200 mls/hr Insulin Human Lispro (Humalog*) 0 units SUBCUT ACHS [facility]; Protocol Last Admin: 12/21/17 08:56 Dose: 2 unit Magnesium Hydroxide (Milk Of Magnesia Liq*) 30 ml PO DAILY [facility] Last Admin: 12/21/17 09:21 Dose: Not Given Melatonin (Melatonin) 3 mg PO BEDTIME PRN; Protocol PRN Reason: Sleep Last Admin: 12/19/17 01:22 Dose: 3 mg Metoprolol Succinate (Toprol Xl Tab*) 25 mg PO DAILY [facility] Last Admin: 12/21/17 09:10 Dose: 25 mg Omeprazole (Prilosec Cap*) 20 mg PO 1630 [facility] Last Admin: 12/20/17 17:06 Dose: 20 mg Ondansetron HCl (Zofran Odt Tab*) 4 mg PO Q6H PRN PRN Reason: n/v Ondansetron HCl (Zofran 40 Mg Vial*) 4 mg IV Q4H PRN PRN Reason: NAUSEA Pharmacy Profile Note (Coumadin Daily Reminder*) 1 note FOLLOW UP 1700 [facility] Last Admin: 12/20/17 17:07 Dose: 1 note Polyethylene Glycol/Electrolytes (Miralax*) 17 gm PO DAILY PRN PRN Reason: CONSTIPATION Last Admin: 12/19/17 09:41 Dose: 17 gm Sodium Chloride (Sodium Chloride 0.65% Nasal [place]*) 2 spray BOTH NARES Q4H PRN PRN Reason: NASAL CONGESTION Last Admin: 12/19/17 14:56 Dose: 2 spray Spironolactone (Aldactone Tab*) 50 mg PO DAILY [facility] Last Admin: 12/21/17 09:08 Dose: 50 mg Home Medications: Home Medications Medication Instructions Recorded Confirmed Type HYDROmorphone TAB* [Dilaudid TAB*] 2 mg PO Q4HR PRN 06/26/12 12/13/17 History Methadone TAB* [Dolophine TAB*] 20 mg PO TID 06/26/12 12/13/17 History Furosemide TAB* [Lasix TAB*] 80 mg PO DAILY 08/26/13 12/13/17 History Albuterol HFA INHALER* [Ventolin 2 puff INH Q4H PRN 11/23/14 12/13/17 History HFA Inhaler*] Omeprazole CAP* [PriLOSEC CAP*] 20 mg PO DAILY 11/23/14 12/13/17 History Polyethylene Glycol 3350* 17 gm PO DAILY PRN 11/23/14 12/13/17 History [Miralax*] Spironolactone TAB* [Aldactone 50 mg PO DAILY 11/23/14 12/13/17 History TAB*] E44-Hqozlv 1 tab PO DAILY 02/14/16 12/13/17 History Cholecalciferol TAB* [Vitamin D 50,000 tab PO WEEKLY 02/14/16 12/13/17 History TAB*] Warfarin TAB(*) [Coumadin TAB(*)] 5 mg PO 1700 02/14/16 12/13/17 History hydrOXYzine HCL TAB* [Atarax 10 MG 10 tab PO Q4HR PRN 02/14/16 12/13/17 History TAB*] Amoxicillin/Clavulanate TAB* 875 mg PO BID #14 tab 10/01/17 12/13/17 Rx [Augmentin TAB 875*] Allergies: Allergies Allergy/AdvReac Type Severity Reaction Status Date / Time codeine Allergy Unknown Verified 12/13/17 17:27 Reaction Details iodine Allergy Swelling Verified 12/13/17 17:27 meperidine [From Demerol] Allergy Unknown Verified 12/13/17 17:27 Reaction Details morphine Allergy Unknown Verified 12/13/17 17:27 Reaction Details moxifloxacin [From Avelox] Allergy Unknown Verified 12/13/17 17:27 Reaction Details sertraline [From Zoloft] Allergy Unknown Verified 12/13/17 17:27 Reaction Details amoxicillin AdvReac Nausea Verified 12/13/17 23:17 Objective - Vital Signs Vital Signs: Vital Signs 06/12/20/17 12/20/17 12:15 12:24 12:45 Temperature 98.0 F Pulse Rate 73 Respiratory 18 18 Rate Blood Pressure 123/53 (mmHg) O2 Sat by Pulse 97 Oximetry 12/20/17 12/20/17 12/20/17 14:37 15:15 16:40 Temperature 97.4 F Pulse Rate 69 Respiratory 20 18 20 Rate Blood Pressure 113/56 (mmHg) O2 Sat by Pulse 95 Oximetry 12/20/17 12/20/17 12/20/17 19:53 20:00 20:51 Temperature Pulse Rate Respiratory 18 18 18 Rate Blood Pressure (mmHg) O2 Sat by Pulse Oximetry 12/20/17 12/20/17 12/21/17 22:34 22:45 03:01 Temperature 98.5 F 97.8 F Pulse Rate 73 64 Respiratory 18 18 Rate Blood Pressure 132/61 119/45 (mmHg) O2 Sat by Pulse 97 94 Oximetry 12/21/17 12/21/17 12/21/17 03:51 07:30 08:00 Temperature Pulse Rate 73 Respiratory 16 16 Rate Blood Pressure 125/63 (mmHg) O2 Sat by Pulse 95 99 Oximetry 12/21/17 12/21/17 08:09 09:16 Temperature 98.5 F Pulse Rate Respiratory 16 Rate Blood Pressure (mmHg) O2 Sat by Pulse Oximetry - Intake and Output Intake and Output: Intake & Output 12/18/17 12/19/17 12/20/17 12/21/17 11:59 11:59 11:59 11:59 Intake Total 293 763 9878 470 Output Total 500 1150 650 Balance 570 100 790 -180 Weight 256 lb 12.8 oz 251 lb 14.4 oz 253 lb 6.4 oz 251 lb 1.6 oz Intake: IV Fluids 30 30 20 NS (0.9%) 30 30 20 IVPB 50 50 60 50 ABX - CEFTRIAXONE 50 50 60 50 Oral 374 424 8330 400 Output: Urine 500 1150 650 Other: Estimated Void Large Large Large Large Date of Last Bowel 12/20/17 Movement # Bowel Movements 0 2 0 1 Estimated Stool Amount Medium Medium Small # Voids 1 3 1 1 ADLs: Meal Record Start: 12/13/17 23: 10 Freq: DAILY@0900,1400,1800 Status: Active Protocol: Created 12/13/17 23:10 System (Rec: 12/13/17 23:10 System MED-M03) Document 12/14/17 09:00 [id number] (Rec: 12/14/17 13:12 [id number] MED-M02) Document 12/14/17 14:00 UKQ2945 (Rec: 12/14/17 14:24 [id number] MED-C09) Document 12/14/17 18:00 [id number] (Rec: 12/14/17 22:16 [id number] MED-C09) Document 12/15/17 09:00 YLJ2199 (Rec: 12/15/17 10:30 VJM5253 MED-C11) Document 12/15/17 14:00 RHR2259 (Rec: 12/15/17 14:36 [id number] MED-C11) Document 12/15/17 18:00 HMX1239 (Rec: 12/15/17 22:50 NON1796 MED-C09) Document 12/16/17 09:00 BHM1035 (Rec: 12/16/17 13:04 [id number] MED-C09) Document 12/16/17 14:00 ZQA9471 (Rec: 12/16/17 15:12 HFI5709 MED-C09) Document 12/16/17 18:00 JHS6197 (Rec: 12/16/17 18:43 TKZ9338 MED-C11) Document 12/17/17 09:00 JSX9693 (Rec: 12/17/17 13:26 TQT8327 MED-M02) Document 12/17/17 13:46 NMM0459 (Rec: 12/17/17 13:47 QBA7075 MED-C02) Document 12/17/17 18:00 [id number] (Rec: 12/17/17 18:21 CMN1797 MED-C11) Document 12/18/17 09:00 XUC9705 (Rec: 12/18/17 09:55 TUB4848 MED-C11) Document 12/18/17 14:00 AEW4756 (Rec: 12/18/17 14:06 ZIG5485 MED-C11) Document 12/19/17 09:00 CVL5160 (Rec: 12/19/17 12:27 AMY4478 MED-C09) Document 12/19/17 14:00 QNP2958 (Rec: 12/19/17 14:25 [id number] MED-C11) Document 12/19/17 18:00 WJZ6834 (Rec: 12/19/17 22:46 VKQ5387 MED-C11) Document 12/20/17 09:00 BIH8222 (Rec: 12/20/17 12:35 OBW4248 MED-C09) Document 12/20/17 14:00 QVO6593 (Rec: 12/20/17 14:01 KWS6209 MED-C11) Document 12/20/17 18:00 NMS5979 (Rec: 12/20/17 18:02 ROO7844 MED-C09) Intake and Output Start: 12/13/17 17: 37 Freq: Status: Active Protocol: Created 12/13/17 17:37 System (Rec: 12/13/17 17:37 System ED-C39) Intake and Output Start: 12/13/17 23: 10 Freq: DAILY@0600,1400,2200 Status: Active Protocol: Created 12/13/17 23:10 System (Rec: 12/13/17 23:10 System MED-M03) Document 12/14/17 06:00 ZYU5508 (Rec: 12/14/17 06:30 GMZ3817 MED-C09) Document 12/14/17 14:00 NPK8824 (Rec: 12/14/17 14:24 QBO1655 MED-C09) Document 12/14/17 22:00 JJY6227 (Rec: 12/14/17 22:20 ZYL6724 MED-C09) Document 12/15/17 06:00 ILG4994 (Rec: 12/15/17 06:29 COW0531 MED-C11) Document 12/15/17 14:00 IRZ8370 (Rec: 12/15/17 14:36 OJX7418 MED-C11) Document 12/15/17 22:00 TYJ6955 (Rec: 12/15/17 22:54 PVV2833 MED-C09) Document 12/16/17 06:00 TFP0930 (Rec: 12/16/17 06:23 SWB6622 MED-C09) Document 12/16/17 14:00 WIT3547 (Rec: 12/16/17 14:44 LZQ2990 MED-C02) Document 12/16/17 20:20 BGD3320 (Rec: 12/16/17 20:21 LNT0868 MED-C11) Document 12/17/17 06:00 UEQ8705 (Rec: 12/17/17 06:12 OWM5195 MEDL-C01) Document 12/17/17 13:25 XWF3589 (Rec: 12/17/17 13:26 XLH0334 MED-M02) Document 12/17/17 20:57 ODG4612 (Rec: 12/17/17 20:58 CVT3580 MED-C11) Document 12/18/17 05:17 EUY2953 (Rec: 12/18/17 05:19 URI2258 MED-C09) Document 12/18/17 14:00 MFE2263 (Rec: 12/18/17 14:06 LDW2977 MED-C11) Document 12/18/17 20:54 CEF2472 (Rec: 12/18/17 21:28 LHC0849 MED-C11) Document 12/19/17 03:54 HDR7762 (Rec: 12/19/17 03:55 NBQ4255 MEDL-C01) Document 12/19/17 12:28 DVF1713 (Rec: 12/19/17 12:28 WVM2667 MED-C09) Document 12/19/17 14:00 WEW1020 (Rec: 12/19/17 14:25 RHK6710 MED-C11) Document 12/19/17 22:00 EKI1267 (Rec: 12/19/17 22:48 OFI6944 MED-C11) Document 12/20/17 04:59 VJR4833 (Rec: 12/20/17 05:01 ARU8627 MED-C09) Document 12/20/17 14:00 WXT4668 (Rec: 12/20/17 15:03 RIV2980 MED-C09) Document 12/20/17 20:03 [id number] (Rec: 12/20/17 20:04 AVP6867 MED-C11) Document 12/21/17 03:02 ZHO2758 (Rec: 12/21/17 03:02 [id number] MED-C11) - Physical Exam General: No Cyanosis, Yes Anemia, No Jaundice, No Clubbing Lungs and Chest: Yes: Chest Expansion Full, Chest Expansion Symetrica, Percussion Note Resonant, Vessicular Breath Sounds. No: Crackles, Wheezes Heart Rate and Rhythm: Regular Additional Cardiovascular: Yes: Normal Heart Sounds, Pedal Edema. No: Heart Murmur Abdominal Exam: Yes: Soft, Bowel Sounds Present. No: Distention, Hepatomegaly, Abdominal Tenderness - Extremities Cranial Nerves II-XII Intact: Yes Limbs: Normal Power - Neuro Orientation: A/O x3 Speech: Normal Results - Results Lab Results: Laboratory Results - last 24 hr 12/20/17 12/20/17 12/20/17 12:09 14:08 14:08 WBC 7.2 RBC 4.79 Hgb 11.1 L Hct 36 MCV 75 L MCH 23 L MCHC 31 RDW 17 H Plt Count 449 MPV 7.7 INR (Anticoag Therapy) 2.88 H Sodium Potassium Chloride Carbon Dioxide Anion Gap BUN Creatinine Est GFR ( Amer) Est GFR (Non-Af Amer) BUN/Creatinine Ratio Glucose POC Glucose (mg/dL) 215 H Calcium Total Bilirubin AST ALT Alkaline Phosphatase C-Reactive Protein B-Natriuretic Peptide Total Protein Albumin Globulin Albumin/Globulin Ratio 12/20/17 12/20/17 12/20/17 14:08 14:08 16:28 WBC RBC Hgb Hct MCV MCH MCHC RDW Plt Count MPV INR (Anticoag Therapy) Sodium 139 Potassium 4.5 Chloride 91 L Carbon Dioxide 44 H* Anion Gap 4 BUN 17 Creatinine 0.70 Est GFR ( Amer) 97.4 Est GFR (Non-Af Amer) 80.5 BUN/Creatinine Ratio 24.3 H Glucose 145 H POC Glucose (mg/dL) 117 H Calcium 9.3 Total Bilirubin 0.20 AST 23 ALT 24 Alkaline Phosphatase 91 C-Reactive Protein 54.06 H B-Natriuretic Peptide 97 Total Protein 7.4 Albumin 3.1 L Globulin 4.3 H Albumin/Globulin Ratio 0.7 L 12/20/17 12/21/17 12/21/17 21:00 06:01 07:57 WBC RBC Hgb Hct MCV MCH MCHC RDW Plt Count MPV INR (Anticoag Therapy) 2.18 H Sodium Potassium Chloride Carbon Dioxide Anion Gap BUN Creatinine Est GFR ( Amer) Est GFR (Non-Af Amer) BUN/Creatinine Ratio Glucose POC Glucose (mg/dL) 181 H 144 H Calcium Total Bilirubin AST ALT Alkaline Phosphatase C-Reactive Protein B-Natriuretic Peptide Total Protein Albumin Globulin Albumin/Globulin Ratio Radiology Results: Patient Name: ASAD FINNEGAN Medical Record#: [id number] Ordering Physician: Samara Hackett MD Acct.#: [id number] : 1935 Age: 82 Sex: F Location: [address] [place] [address] MEDICAL Exam Date: 12/18/17 0700 ADM Status: ADM IN Order Information: CHEST PA & LAT 2 VWS Accession Number: [id number] CPT: 42128 INDICATION: 82-year-old. Follow-up infiltrates COMPARISON: Chest x-ray December 15, 2017 TECHNIQUE: PA and lateral dual-energy views were obtained. FINDINGS: Bones/Soft Tissues: There are no acute bony findings. There is osteopenia with kyphosis Cardiomediastinal: The cardiac silhouette, central pulmonary vessels, and interstitium are prominent compatible with interstitial congestion. Lungs: There is no focal consolidation. Pleura: There are bilateral pleural effusions. Other: None IMPRESSION: VASCULAR CONGESTIVE FINDINGS WITH BILATERAL PLEURAL EFFUSIONS. GIVEN THE DIFFUSE FINDINGS, COEXISTENT INFILTRATES ARE NOT EXCLUDED RADIOGRAPHICALLY. THERE APPEARS BE MILD INTERVAL WORSENING. <Electronically signed by Shon Amin MD in OV> 12/18/17 1043 Dictated By: Shon Amin MD Dictated Date/Time: 12/18/17 1043 Transcribed Date/Time: 12/18/17 1041 Copy to: CC:Samara Hackett MD; Tristen Hayden MD; Get Palacios MD Imaging - [facility] - [facility] [address] [address] ph [phone]) ph ([phone]) ph ([phone]) 1 of 1 Assessment - Problem List Assessment: Patient Problems Pneumonia (Acute) UTI (urinary tract infection) (Acute) COPD (chronic obstructive pulmonary disease) (Chronic) 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) GERD (gastroesophageal reflux disease) (Chronic) History of pulmonary embolism (Chronic) Iron deficiency anemia (Chronic) Low back pain (Chronic) Lymphedema of both lower extremities (Chronic) Morbid obesity with BMI of 45.0-49.9, adult (Chronic) Osteoarthritis (Chronic) T2DM (type 2 diabetes mellitus) (Chronic) Warfarin anticoagulation (Chronic) Plan: Pneumonia (Acute) He chest is clear clinically UTI (urinary tract infection) (Acute) She has no symptoms - complete antibacterial course COPD (chronic obstructive pulmonary disease) (Chronic) not exacerbated 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 I discussed the above with the patient and she agrees with ongoing management.
[2017-12-21] MEDS: Omeprazole CAP* 20 MG PO SCH (16:11)
[2017-12-21] MEDS ORDERED: Warfarin TAB(*) 2 MG PO ONE (17:00)
[2017-12-21] MEDS: cefTRIAXone VIAL(*) 1,000 MG in NS 0.9% 50 ML* 50 ML IVPB SCH (19:23)
[2017-12-21] MEDS: HYDROmorphone TAB* 4 MG PO PRN (21:39)
[2017-12-22 07:08] LABS: INR 1.75 (0.77-1.02)
--- NOTE | 2017-12-22 08:38 | RAD ---
INDICATION: Fever COMPARISON: December 18, 2017 TECHNIQUE: PA and lateral dual-energy views were obtained. FINDINGS: Bones/Soft Tissues: There are no acute bony findings. Cardiomediastinal: The cardiomediastinal silhouette is normal. There is interstitial edema with a small amount of fluid in the fissures. Lungs: There is mild infiltrate or atelectasis in the right lung base.. Pleura: There are bilateral effusions. IMPRESSION:: Mild vascular congestive findings, unchanged. Small right basal infiltrate or atelectasis.
[2017-12-22] MEDS: Insulin LISPRO* 1 UNITS UNIT SUBCUT SCH ×4 (09:15→20:49)
[2017-12-22] MEDS: Azithromycin TAB* 250 MG PO SCH (09:16)
[2017-12-22] MEDS: Metoprolol Succinate XL TAB* 25 MG PO SCH (09:19)
[2017-12-22] MEDS: Ferrous Sulfate TAB* 325 MG PO SCH (09:20)
[2017-12-22] MEDS: Docusate CAP* 100 MG PO SCH ×2 (09:21→20:49)
[2017-12-22] MEDS: Spironolactone TAB* 25 MG PO SCH (09:22)
[2017-12-22] MEDS: Furosemide TAB* 40 MG PO SCH (09:23)
[2017-12-22] MEDS: Magnesium Hydroxide LIQ* 30 ML UDC PO SCH (09:25)
--- NOTE | 2017-12-22 10:25 | PN ---
Subjective - Subjective Reason for Note: Progress Note History: She is at her baseline today. She is not febrile and has not been coughing - she thinks there is some sputum she would like to get up. She has had no urination symptoms. She has no chest pain, palpitations or dyspnea at rest. Her glucose control is improving. 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 GERD (gastroesophageal reflux disease) (Chronic) K21.9 History of pulmonary embolism (Chronic) Z86.711 Iron deficiency anemia (Chronic) D50.9 Low back pain (Chronic) M54.5 Lymphedema of both lower extremities (Chronic) I89.0 Morbid obesity with BMI of 45.0-49.9, adult (Chronic) E66.01, Z68.42 Osteoarthritis (Chronic) M19.90 T2DM (type 2 diabetes mellitus) (Chronic) Warfarin anticoagulation (Chronic) Z79.01 Current Medications: Current Medications Acetaminophen (Tylenol Tab*) 650 mg PO Q6H PRN PRN Reason: FEVER/PAIN Last Admin: 12/19/17 01:20 Dose: 650 mg Albuterol (Ventolin 2.5 Mg/3 Ml Neb.Marie*) 2.5 mg INH Q2H PRN PRN Reason: SOB/WHEEZING Albuterol (Ventolin Hfa Inhaler*) 2 puff INH Q4H PRN PRN Reason: SHORTNESS OF BREATH Last Admin: 12/19/17 23:24 Dose: 2 puff Azithromycin (Zithromax Tab*) 250 mg PO DAILY [facility] Last Admin: 12/22/17 09:16 Dose: 250 mg Docusate Sodium (Colace Cap*) 200 mg PO BID [facility] Last Admin: 12/22/17 09:21 Dose: 200 mg Ferrous Sulfate (Ferrous Sulfate Tab*) 325 mg PO DAILY [facility] Last Admin: 12/22/17 09:20 Dose: 325 mg Furosemide (Lasix Tab*) 80 mg PO DAILY [facility] Last Admin: 12/22/17 09:23 Dose: 80 mg Hydromorphone HCl (Dilaudid Inj*) 2 mg IV Q4H PRN PRN Reason: PAIN Last Admin: 12/19/17 17:03 Dose: 2 mg Hydromorphone HCl (Dilaudid Tab*) 8 mg PO Q4H PRN PRN Reason: PAIN Last Admin: 12/21/17 21:39 Dose: 8 mg Insulin Human Lispro (Humalog*) 0 units SUBCUT ACHS [facility]; Protocol Last Admin: 12/22/17 09:15 Dose: Not Given Magnesium Hydroxide (Milk Of Magnesia Liq*) 30 ml PO DAILY [facility] Last Admin: 12/22/17 09:25 Dose: 30 ml Melatonin (Melatonin) 3 mg PO BEDTIME PRN; Protocol PRN Reason: Sleep Last Admin: 12/19/17 01:22 Dose: 3 mg Metoprolol Succinate (Toprol Xl Tab*) 25 mg PO DAILY [facility] Last Admin: 12/22/17 09:19 Dose: 25 mg Omeprazole (Prilosec Cap*) 20 mg PO 1630 [facility] Last Admin: 12/21/17 16:11 Dose: 20 mg Ondansetron HCl (Zofran Odt Tab*) 4 mg PO Q6H PRN PRN Reason: n/v Ondansetron HCl (Zofran 40 Mg Vial*) 4 mg IV Q4H PRN PRN Reason: NAUSEA Pharmacy Profile Note (Coumadin Per Pharmacy*) 0 note FOLLOW UP .PER PHARMACY PROTOC [facility]; Protocol Polyethylene Glycol/Electrolytes (Miralax*) 17 gm PO DAILY PRN PRN Reason: CONSTIPATION Last Admin: 12/19/17 09:41 Dose: 17 gm Sodium Chloride (Sodium Chloride 0.65% Nasal [place]*) 2 spray BOTH NARES Q4H PRN PRN Reason: NASAL CONGESTION Last Admin: 12/19/17 14:56 Dose: 2 spray Spironolactone (Aldactone Tab*) 50 mg PO DAILY [facility] Last Admin: 12/22/17 09:22 Dose: 50 mg Home Medications: Home Medications Medication Instructions Recorded Confirmed Type HYDROmorphone TAB* [Dilaudid TAB*] 2 mg PO Q4HR PRN 06/26/12 12/13/17 History Methadone TAB* [Dolophine TAB*] 20 mg PO TID 06/26/12 12/13/17 History Furosemide TAB* [Lasix TAB*] 80 mg PO DAILY 08/26/13 12/13/17 History Albuterol HFA INHALER* [Ventolin 2 puff INH Q4H PRN 11/23/14 12/13/17 History HFA Inhaler*] Omeprazole CAP* [PriLOSEC CAP*] 20 mg PO DAILY 11/23/14 12/13/17 History Polyethylene Glycol 3350* 17 gm PO DAILY PRN 11/23/14 12/13/17 History [Miralax*] Spironolactone TAB* [Aldactone 50 mg PO DAILY 11/23/14 12/13/17 History TAB*] X02-Icudsl 1 tab PO DAILY 02/14/16 12/13/17 History Cholecalciferol TAB* [Vitamin D 50,000 tab PO WEEKLY 02/14/16 12/13/17 History TAB*] Warfarin TAB(*) [Coumadin TAB(*)] 5 mg PO 1700 02/14/16 12/13/17 History hydrOXYzine HCL TAB* [Atarax 10 MG 10 tab PO Q4HR PRN 02/14/16 12/13/17 History TAB*] Amoxicillin/Clavulanate TAB* 875 mg PO BID #14 tab 10/01/17 12/13/17 Rx [Augmentin TAB 875*] Allergies: Allergies Allergy/AdvReac Type Severity Reaction Status Date / Time codeine Allergy Unknown Verified 12/13/17 17:27 Reaction Details iodine Allergy Swelling Verified 12/13/17 17:27 meperidine [From Demerol] Allergy Unknown Verified 12/13/17 17:27 Reaction Details morphine Allergy Unknown Verified 12/13/17 17:27 Reaction Details moxifloxacin [From Avelox] Allergy Unknown Verified 12/13/17 17:27 Reaction Details sertraline [From Zoloft] Allergy Unknown Verified 12/13/17 17:27 Reaction Details amoxicillin AdvReac Nausea Verified 12/13/17 23:17 Objective - Vital Signs Vital Signs: Vital Signs 12/21/17 12/21/17 12/21/17 12:41 13:28 15:45 Temperature 98.0 F 98.0 F Pulse Rate 69 66 Respiratory 22 18 16 Rate Blood Pressure 105/43 116/50 (mmHg) O2 Sat by Pulse 94 96 Oximetry 12/21/17 12/21/17 12/21/17 19:15 19:22 20:00 Temperature 97.1 F Pulse Rate 71 71 Respiratory 20 20 18 Rate Blood Pressure 111/55 111/55 (mmHg) O2 Sat by Pulse 96 96 Oximetry 12/21/17 12/21/17 12/21/17 21:39 22:17 22:50 Temperature 97.3 F 97.3 F Pulse Rate 69 69 Respiratory 16 18 18 Rate Blood Pressure 104/66 104/66 (mmHg) O2 Sat by Pulse 94 94 Oximetry 12/22/17 12/22/17 12/22/17 00:58 07:37 08:00 Temperature 97.5 F Pulse Rate 66 Respiratory 16 19 19 Rate Blood Pressure 119/49 (mmHg) O2 Sat by Pulse 97 Oximetry - Intake and Output Intake and Output: Intake & Output 12/19/17 12/20/17 12/21/17 12/22/17 11:59 11:59 11:59 11:59 Intake Total 600 1940 700 355 Output Total 500 1150 650 560 Balance 100 790 50 -205 Weight 251 lb 14.4 oz 253 lb 6.4 oz 251 lb 1.6 oz Intake: IV Fluids 30 20 NS (0.9%) 30 20 IVPB 50 60 50 55 ABX - CEFTRIAXONE 50 60 50 55 Oral 520 1880 630 300 Output: Urine 500 1150 650 560 Other: Estimated Void Large Large Large Large Date of Last Bowel 12/20/17 Movement # Bowel Movements 2 0 1 0 Estimated Stool Amount Medium Medium Small Medium # Voids 3 1 1 1 ADLs: Meal Record Start: 12/13/17 23: 10 Freq: DAILY@0900,1400,1800 Status: Active Protocol: Created 12/13/17 23:10 System (Rec: 12/13/17 23:10 System MED-M03) Document 12/14/17 09:00 [id number] (Rec: 12/14/17 13:12 [id number] MED-M02) Document 12/14/17 14:00 [id number] (Rec: 12/14/17 14:24 [id number] MED-C09) Document 12/14/17 18:00 [id number] (Rec: 12/14/17 22:16 [id number] MED-C09) Document 12/15/17 09:00 YQJ0592 (Rec: 12/15/17 10:30 [id number] MED-C11) Document 12/15/17 14:00 ZMF5311 (Rec: 12/15/17 14:36 WJO6870 MED-C11) Document 12/15/17 18:00 WMP1112 (Rec: 12/15/17 22:50 [id number] MED-C09) Document 12/16/17 09:00 VMC0423 (Rec: 12/16/17 13:04 [id number] MED-C09) Document 12/16/17 14:00 BUJ3515 (Rec: 12/16/17 15:12 [id number] MED-C09) Document 12/16/17 18:00 [id number] (Rec: 12/16/17 18:43 [id number] MED-C11) Document 12/17/17 09:00 JDZ3237 (Rec: 12/17/17 13:26 XJI2506 MED-M02) Document 12/17/17 13:46 RTT6006 (Rec: 12/17/17 13:47 BFY5018 MED-C02) Document 12/17/17 18:00 XSO7327 (Rec: 12/17/17 18:21 [id number] MED-C11) Document 12/18/17 09:00 NAM2537 (Rec: 12/18/17 09:55 VRD9519 MED-C11) Document 12/18/17 14:00 KYK5969 (Rec: 12/18/17 14:06 RAS2708 MED-C11) Document 12/19/17 09:00 MQS7027 (Rec: 12/19/17 12:27 SVE0388 MED-C09) Document 12/19/17 14:00 [id number] (Rec: 12/19/17 14:25 JXN1517 MED-C11) Document 12/19/17 18:00 BSK3991 (Rec: 12/19/17 22:46 [id number] MED-C11) Document 12/20/17 09:00 GDV4858 (Rec: 12/20/17 12:35 EGI4147 MED-C09) Document 12/20/17 14:00 EPU1806 (Rec: 12/20/17 14:01 ATY5533 MED-C11) Document 12/20/17 18:00 YMX7040 (Rec: 12/20/17 18:02 OKW0316 MED-C09) Document 12/21/17 09:00 EGN3598 (Rec: 12/21/17 13:19 ATH2539 MED-C14) Document 12/21/17 14:00 ASS3599 (Rec: 12/21/17 15:00 FMC1184 MED-C02) Document 12/21/17 18:00 RLT1347 (Rec: 12/21/17 18:20 WNS1519 MED-C11) Document 12/22/17 09:00 DBR8026 (Rec: 12/22/17 10:19 FKD3590 MED-M04) Intake and Output Start: 12/13/17 17: 37 Freq: Status: Active Protocol: Created 12/13/17 17:37 System (Rec: 12/13/17 17:37 System ED-C39) Intake and Output Start: 12/13/17 23: 10 Freq: DAILY@0600,1400,2200 Status: Active Protocol: Created 12/13/17 23:10 System (Rec: 12/13/17 23:10 System MED-M03) Document 12/14/17 06:00 [id number] (Rec: 12/14/17 06:30 LWU6270 MED-C09) Document 12/14/17 14:00 RSP2613 (Rec: 12/14/17 14:24 NCU3796 MED-C09) Document 12/14/17 22:00 HDQ1641 (Rec: 12/14/17 22:20 QHH0834 MED-C09) Document 12/15/17 06:00 YUG5055 (Rec: 12/15/17 06:29 KDI5924 MED-C11) Document 12/15/17 14:00 ALX8163 (Rec: 12/15/17 14:36 XQV1243 MED-C11) Document 12/15/17 22:00 OUN5165 (Rec: 12/15/17 22:54 WKI6381 MED-C09) Document 12/16/17 06:00 RZQ4866 (Rec: 12/16/17 06:23 SAB2327 MED-C09) Document 12/16/17 14:00 QKA6789 (Rec: 12/16/17 14:44 PVH8998 MED-C02) Document 12/16/17 20:20 RJG7347 (Rec: 12/16/17 20:21 WDD7351 MED-C11) Document 12/17/17 06:00 VHP5318 (Rec: 12/17/17 06:12 LMJ6150 MEDL-C01) Document 12/17/17 13:25 RCC0515 (Rec: 12/17/17 13:26 CAI4362 MED-M02) Document 12/17/17 20:57 WYE7767 (Rec: 12/17/17 20:58 NMP6110 MED-C11) Document 12/18/17 05:17 IEG2377 (Rec: 12/18/17 05:19 NGM9973 MED-C09) Document 12/18/17 14:00 SEN6363 (Rec: 12/18/17 14:06 KGT8006 MED-C11) Document 12/18/17 20:54 CCA7202 (Rec: 12/18/17 21:28 QXT7570 MED-C11) Document 12/19/17 03:54 WZY8666 (Rec: 12/19/17 03:55 ENS5410 MEDL-C01) Document 12/19/17 12:28 AES1560 (Rec: 12/19/17 12:28 TJR2482 MED-C09) Document 12/19/17 14:00 VWR0106 (Rec: 12/19/17 14:25 URY5708 MED-C11) Document 12/19/17 22:00 DLR9669 (Rec: 12/19/17 22:48 RDD1258 MED-C11) Document 12/20/17 04:59 KHK7057 (Rec: 12/20/17 05:01 CIV0488 MED-C09) Document 12/20/17 14:00 LAS5620 (Rec: 12/20/17 15:03 VOS2217 MED-C09) Document 12/20/17 20:03 IFA9177 (Rec: 12/20/17 20:04 ZFY1619 MED-C11) Document 12/21/17 03:02 PFL5103 (Rec: 12/21/17 03:02 YFF6652 MED-C11) Document 12/21/17 13:20 KCJ1427 (Rec: 12/21/17 13:20 MUW1508 MED-C14) Document 12/21/17 19:42 HXQ1375 (Rec: 12/21/17 19:44 IHT9497 MED-C09) Document 12/22/17 05:11 KIF5757 (Rec: 12/22/17 05:12 VTK6137 MED-C09) - Physical Exam General Physical Exam Comment: Her leg dressings were changed before I arrived. General: No Cyanosis, No Anemia, No Jaundice, No Clubbing Lungs and Chest: Yes: Chest Expansion Full, Chest Expansion Symetrica, Percussion Note Resonant, Vessicular Breath Sounds. No: Crackles, Wheezes Heart Rate and Rhythm: Regular Additional Cardiovascular: Yes: Normal Heart Sounds, Pedal Edema. No: Heart Murmur Abdominal Exam: Yes: Soft, Abdominal Tenderness - mildest generalized tenderness , Bowel Sounds Present. 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 It is likely that Dr. Samara Hackett will be able to discharge her tomorrow. I will continue her IV antibacterials and recheck her CRP, CBC and BMP in the morning. I discussed this with the patient and she agrees with the management plan
[2017-12-22] MEDS: HYDROmorphone INJ* 2 MG/ML CARPUJECT SYRINGE IV PRN (16:28)
[2017-12-22] MEDS ORDERED: Warfarin TAB(*) 3 MG PO ONE (17:00)
[2017-12-22] MEDS: Omeprazole CAP* 20 MG PO SCH (17:08)
[2017-12-22] MEDS: HYDROmorphone TAB* 4 MG PO PRN (20:54)
[2017-12-23 06:59] LABS: ABS Basophils 0 10^3/ul (0-0.2); ABS Eosinophils 0.3 10^3/ul (0-0.6); ABS Lymphocytes 0.8 10^3/ul (1.0-4.8); ABS Monocytes 0.8 10^3/ul (0-0.8); ABS Neutrophils 5.2 10^3/ul (1.5-7.7); ABS Nucleated RBC 0 10^3/ul; Eosinophil % 4.1 % (0-6); Hematocrit 33 % (35-47); Hemoglobin 10.3 g/dl (12.0-16.0); Lymphocyte % 10.8 % (25-47); Mean Corpuscular HGB Conc 31 g/dl (31-36); Mean Corpuscular Hemoglobin 23 pg (27-31); Mean Corpuscular Volume 75 fL (80-97); Mean Platelet Volume 7.4 um3 (7.4-10.4); Nucleated Red Blood Cells % 0.1; Platelet Count 426 10^3/ul (150-450); Red Blood Count 4.45 10^6/ul (4.00-5.40); Red Cell Distribution Width 17 % (10.5-15)
[2017-12-23 07:15] LABS: EGFR Non-African American 75.5 (>60)
[2017-12-23 07:20] LABS: INR 1.53 (0.77-1.02)
[2017-12-23] MEDS: Insulin LISPRO* 1 UNITS UNIT SUBCUT SCH ×2 (09:08→12:34)
[2017-12-23] MEDS: Spironolactone TAB* 25 MG PO SCH (09:20)
[2017-12-23] MEDS: Ferrous Sulfate TAB* 325 MG PO SCH (09:20)
[2017-12-23] MEDS: Furosemide TAB* 40 MG PO SCH (09:20)
[2017-12-23] MEDS: Docusate CAP* 100 MG PO SCH (09:21)
[2017-12-23] MEDS: Azithromycin TAB* 250 MG PO SCH (09:21)
[2017-12-23] MEDS: Metoprolol Succinate XL TAB* 25 MG PO SCH (09:21)
[2017-12-23] MEDS: Magnesium Hydroxide LIQ* 30 ML UDC PO SCH (09:22)
[2017-12-23 12:48] VITALS: BP 125/55
[2017-12-23] MEDS ORDERED: Warfarin TAB(*) 5 MG PO ONE (17:00)
== END 2017-12-23 13:30 | disposition home health service (06) | DRG 689 ==
LOC: ED 17:02 → MED 22:13 → OBSVTOIN 12-14 14:01
PROVIDERS: ADMIT Hospitalist; ATTEND Internal Medicine Geriatric Medicine
DX: N39.0 Urinary tract infection, site not specified (principal); J18.9 Pneumonia, unspecified organism; D68.51 Activated protein C resistance; Z68.42 Body mass index [BMI] 45.0-49.9, adult; J96.11 Chronic respiratory failure with hypoxia; M86.671 Other chronic osteomyelitis, right ankle and foot; B96.20 Unspecified Escherichia coli [E. coli] as the cause of diseases classified elsewhere; J44.9 Chronic obstructive pulmonary disease, unspecified; Z99.81 Dependence on supplemental oxygen; I89.0 Lymphedema, not elsewhere classified; M54.5 Low back pain; M19.90 Unspecified osteoarthritis, unspecified site; K21.9 Gastro-esophageal reflux disease without esophagitis; E78.5 Hyperlipidemia, unspecified; E66.01 Morbid (severe) obesity due to excess calories; I25.10 Atherosclerotic heart disease of native coronary artery without angina pectoris; D50.9 Iron deficiency anemia, unspecified; E11.69 Type 2 diabetes mellitus with other specified complication; R07.9 Chest pain, unspecified; R41.82 Altered mental status, unspecified; G56.00 Carpal tunnel syndrome, unspecified upper limb; Z96.651 Presence of right artificial knee joint; Z86.718 Personal history of other venous thrombosis and embolism; Z86.711 Personal history of pulmonary embolism; Z79.2 Long term (current) use of antibiotics; Z79.01 Long term (current) use of anticoagulants; Z79.84 Long term (current) use of oral hypoglycemic drugs; Z79.899 Other long term (current) drug therapy; Z88.1 Allergy status to other antibiotic agents; Z88.5 Allergy status to narcotic agent; Z88.8 Allergy status to other drugs, medicaments and biological substances; R50.9 Fever, unspecified; R53.1 Weakness
CPT/HCPCS: 36415; 71045; 71046; 80048; 80053; 81003; 81015; 82550; 82607; 82728; 82746; 83036; 83540; 83550; 83605; 83615; 83735; 83880; 84145; 84443; 84484; 85025; 85027; 85045; 85610; 86140; 87040; 87077; 87086; 87186; 93005; 93306; 94640; 99285; 99406; A9270-GY; G8978-GP-CN; G8979-GP-CJ; J0696; J1170

== ENCOUNTER 2021-03-31 17:06 | Inpatient (IN) ==
[2021-03-31 19:48] LABS: ABS Eosinophils 0.1 10^3/ul (0-0.6); ABS Lymphocytes 0.5 10^3/ul (1.0-4.8); ABS Monocytes 0.6 10^3/ul (0-0.8); ABS Neutrophils 4.6 10^3/ul (1.5-7.7); Eosinophil % 2.2 %; Hematocrit 32 % (35-47); Hemoglobin 10.7 g/dL (12.0-16.0); Lymphocyte % 8.3 %; Mean Corpuscular HGB Conc 33 g/dL (31-36); Mean Corpuscular Hemoglobin 28 pg (27-31); Mean Corpuscular Volume 85 fL (80-97); Mean Platelet Volume 7.5 fL (7.4-10.4); Platelet Count 282 10^3/uL (150-450); Red Blood Count 3.79 10^6 /uL (3.70-4.87); Red Cell Distribution Width 15 % (10-15); White Blood Count 5.7 10^3/uL (3.5-10.8)
[2021-03-31 20:04] LABS: ALT 18 U/L (7-52); AST 31 U/L (13-39); Albumin 3.3 g/dL (3.2-5.2); Albumin/Globulin Ratio 1.1 (1-3); Alkaline Phosphatase 83 U/L (35-149); Blood Urea Nitrogen 33 mg/dL (6-24); Calcium 9.4 mg/dL (8.6-10.3); Chloride 94 mmol/L (101-111); EGFR African American 57.3 (>60); EGFR Non-African American 47.3 (>60); Globulin 3.1 g/dL (2-4); Glucose 116 mg/dL (70-100); Potassium 4.6 mmol/L (3.5-5.0); Sodium 138 mmol/L (135-145); Total Protein 6.4 g/dL (6.4-8.9)
[2021-03-31 20:23] LABS: CO2 Carbon Dioxide 44 mmol/L (22-32)
[2021-03-31] MEDS ORDERED: Al Hydrox/Mg Hydrox/Simet LIQ 30 ML UDC PO PRN (20:39)
[2021-03-31] MEDS ORDERED: Albuterol HFA INHALER 8 gm MDI INH PRN (20:43)
[2021-03-31] MEDS ORDERED: ceFAZolin 1 GM X ONE DOSE (AddVan) IVPB (21:00)
[2021-03-31] MEDS ORDERED: Warfarin per PHARMACY **NOTE FOLLOW UP SCH (21:00)
[2021-03-31] MEDS ORDERED: Triamcinolone 0.1% CREAM (NF) 15 GM TUBE TOPICAL SCH (21:00)
[2021-03-31] MEDS: Nystatin TOP POWDER 15 GM BTL TOPICAL SCH (23:21)
[2021-03-31] MEDS: Saline NASAL SPRAY 0.65% BTL BOTH NARES SCH (23:21)
[2021-03-31 23:24] LABS: Rapid COVID-19 Molecular Undetected (Undetected)
[2021-03-31] MEDS ORDERED: DOXYcycline IV 100 MG in NS 0.9% 250 ML IVPB ONE (23:30)
[2021-03-31 23:51] LABS: INR 4.22 (0.86-1.15)
[2021-04-01] MEDS: ceFAZolin 1 GM ADVAN 1 GM in NS 0.9% 50 ML 50 ML IVPB SCH ×3 (06:26→22:14)
[2021-04-01 07:58] LABS: EGFR African American 71.3 (>60); EGFR Non-African American 58.9 (>60); Potassium 4.4 mmol/L (3.5-5.0)
[2021-04-01 08:30] LABS: INR 5.02 (0.86-1.15)
[2021-04-01] MEDS: Polyethylene Glycol 3350 17 GM PACKET PO SCH (09:13)
[2021-04-01] MEDS: Triamcinolone 0.025% OINT 15 GM TUBE TOPICAL SCH ×2 (09:13→22:15)
[2021-04-01] MEDS: Nystatin TOP POWDER 15 GM BTL TOPICAL SCH ×2 (09:13→22:14)
[2021-04-01] MEDS: Saline NASAL SPRAY 0.65% BTL BOTH NARES SCH ×2 (09:14→22:14)
[2021-04-01] MEDS ORDERED: Phytonadione Oral Solution 5 MG/25 ML UDC PO ONE (09:39)
[2021-04-01] MEDS: HONEY 100% TOPICAL SCH (10:13)
[2021-04-01] MEDS: DOXYcycline 100 MG in NS 0.9% 250 ml 250 ML IVPB SCH (12:26)
[2021-04-01] MEDS ORDERED: Warfarin - No Order Today **NOTE FOLLOW UP ONE (17:00)
[2021-04-02] MEDS: DOXYcycline 100 MG in NS 0.9% 250 ml 250 ML IVPB SCH ×2 (00:11→12:00)
[2021-04-02] MEDS: ceFAZolin 1 GM ADVAN 1 GM in NS 0.9% 50 ML 50 ML IVPB SCH ×2 (05:47→15:00)
[2021-04-02 06:49] LABS: ABS Eosinophils 0.1 10^3/ul (0-0.6); ABS Lymphocytes 0.6 10^3/ul (1.0-4.8); ABS Monocytes 0.6 10^3/ul (0-0.8); ABS Neutrophils 4.2 10^3/ul (1.5-7.7); Eosinophil % 2.5 %; Hematocrit 30 % (35-47); Hemoglobin 9.9 g/dL (12.0-16.0); Lymphocyte % 11.6 %; Mean Corpuscular HGB Conc 33 g/dL (31-36); Mean Corpuscular Hemoglobin 28 pg (27-31); Mean Corpuscular Volume 85 fL (80-97); Mean Platelet Volume 7.8 fL (7.4-10.4); Platelet Count 254 10^3/uL (150-450); Red Blood Count 3.51 10^6 /uL (3.70-4.87); Red Cell Distribution Width 15 % (10-15); White Blood Count 5.6 10^3/uL (3.5-10.8)
[2021-04-02 07:00] LABS: INR 1.97 (0.86-1.15)
[2021-04-02 07:07] LABS: Calcium 8.4 mg/dL (8.6-10.3); EGFR African American 62.5 (>60); EGFR Non-African American 51.6 (>60); Potassium 4.3 mmol/L (3.5-5.0)
[2021-04-02] MEDS: Polyethylene Glycol 3350 17 GM PACKET PO SCH (08:38)
[2021-04-02] MEDS: Triamcinolone 0.025% OINT 15 GM TUBE TOPICAL SCH ×2 (08:38→21:51)
[2021-04-02] MEDS: HONEY 100% TOPICAL SCH ×2 (08:38→10:06)
[2021-04-02] MEDS: Saline NASAL SPRAY 0.65% BTL BOTH NARES SCH ×3 (08:38→21:51)
[2021-04-02] MEDS: Nystatin TOP POWDER 15 GM BTL TOPICAL SCH ×2 (08:38→21:51)
[2021-04-02] MEDS ORDERED: Saline NASAL SPRAY 0.65% BTL BOTH NARES PRN (14:17)
[2021-04-02] MEDS: Warfarin DAILY REMINDER **NOTE FOLLOW UP SCH (15:45)
[2021-04-03] MEDS: ceFAZolin 1 GM ADVAN 1 GM in NS 0.9% 50 ML 50 ML IVPB SCH ×2 (01:20→01:55)
[2021-04-03] MEDS: DOXYcycline 100 MG in NS 0.9% 250 ml 250 ML IVPB SCH ×2 (02:30→12:08)
[2021-04-03 06:35] LABS: Hematocrit 32 % (35-47); Hemoglobin 10.4 g/dL (12.0-16.0); Mean Corpuscular HGB Conc 32 g/dL (31-36); Mean Corpuscular Hemoglobin 28 pg (27-31); Mean Corpuscular Volume 87 fL (80-97); Mean Platelet Volume 8.5 fL (7.4-10.4); Platelet Count 253 10^3/uL (150-450); Red Blood Count 3.71 10^6 /uL (3.70-4.87); Red Cell Distribution Width 15 % (10-15); White Blood Count 5.8 10^3/uL (3.5-10.8)
[2021-04-03 06:37] LABS: INR 1.57 (0.86-1.15)
[2021-04-03 06:51] LABS: Calcium 8.5 mg/dL (8.6-10.3); EGFR African American 61.1 (>60); EGFR Non-African American 50.5 (>60); Magnesium 1.7 mg/dL (1.9-2.7); Potassium 4.1 mmol/L (3.5-5.0)
[2021-04-03] MEDS ORDERED: Magnesium Sulfate IV 1GM/100ML 1 GM/100 ML BAG IV ONE (07:06)
[2021-04-03] MEDS ORDERED: ceFAZolin 1 GM ADVAN 1 GM in NS 0.9% 50 ML 50 ML IVPB SCH (10:00)
[2021-04-03] MEDS: Polyethylene Glycol 3350 17 GM PACKET PO SCH (10:05)
[2021-04-03] MEDS: Nystatin TOP POWDER 15 GM BTL TOPICAL SCH ×2 (10:05→21:44)
[2021-04-03] MEDS: HONEY 100% TOPICAL SCH (10:06)
[2021-04-03] MEDS: Saline NASAL SPRAY 0.65% BTL BOTH NARES SCH ×2 (10:06→21:43)
[2021-04-03] MEDS: Triamcinolone 0.025% OINT 15 GM TUBE TOPICAL SCH ×2 (10:06→21:45)
[2021-04-03] MEDS: Warfarin DAILY REMINDER **NOTE FOLLOW UP SCH (17:10)
[2021-04-04 06:04] LABS: Hematocrit 34 % (35-47); Hemoglobin 10.9 g/dL (12.0-16.0); Mean Corpuscular HGB Conc 32 g/dL (31-36); Mean Corpuscular Hemoglobin 28 pg (27-31); Mean Corpuscular Volume 86 fL (80-97); Mean Platelet Volume 8.1 fL (7.4-10.4); Platelet Count 274 10^3/uL (150-450); Red Blood Count 3.94 10^6 /uL (3.70-4.87); Red Cell Distribution Width 15 % (10-15); White Blood Count 6.4 10^3/uL (3.5-10.8)
[2021-04-04 06:09] LABS: INR 1.79 (0.86-1.15)
[2021-04-04 06:27] LABS: Calcium 8.7 mg/dL (8.6-10.3); Potassium 4.2 mmol/L (3.5-5.0)
[2021-04-04] MEDS: Saline NASAL SPRAY 0.65% BTL BOTH NARES SCH (11:09)
[2021-04-04] MEDS: Triamcinolone 0.025% OINT 15 GM TUBE TOPICAL SCH (11:09)
[2021-04-04] MEDS: Polyethylene Glycol 3350 17 GM PACKET PO SCH (11:09)
[2021-04-04] MEDS: Nystatin TOP POWDER 15 GM BTL TOPICAL SCH (11:09)
[2021-04-04] MEDS: HONEY 100% TOPICAL SCH (11:10)
[2021-04-04 15:43] VITALS: BP 142/69
== END 2021-04-04 18:17 | disposition home or self-care (01) | DRG 603 ==
LOC: ED 17:06 → EDHOLD 17:06 → SUATTDRO 20:39 → SSU 04-01 02:43 → SUATTDRO 04-02 10:47
PROVIDERS: ADMIT Hospitalist; ATTEND Student in an Organized Health Care Education/Training Program

== ENCOUNTER 2021-04-17 17:02 | Inpatient (IN) ==
[2021-04-17] MEDS ORDERED: cefTRIAXone 1 gm/50 mL NS BAG 1 GM/50 ML BAG IV ONE (17:36)
[2021-04-17 19:01] LABS: ABS Eosinophils 0.1 10^3/ul (0-0.6); ABS Lymphocytes 0.4 10^3/ul (1.0-4.8); ABS Monocytes 0.8 10^3/ul (0-0.8); ABS Neutrophils 7.7 10^3/ul (1.5-7.7); Eosinophil % 0.6 %; Hematocrit 33 % (35-47); Hemoglobin 10.5 g/dL (12.0-16.0); Lymphocyte % 4.3 %; Mean Corpuscular HGB Conc 32 g/dL (31-36); Mean Corpuscular Hemoglobin 28 pg (27-31); Mean Corpuscular Volume 87 fL (80-97); Platelet Count 317 10^3/uL (150-450); Red Blood Count 3.78 10^6 /uL (3.70-4.87); Red Cell Distribution Width 15 % (10-15)
[2021-04-17 19:20] LABS: INR 3.71 (0.86-1.15)
[2021-04-17 19:20] LABS: Rapid COVID-19 Molecular Undetected (Undetected)
[2021-04-17 19:34] LABS: Albumin 3.3 g/dL (3.2-5.2); Calcium 9.8 mg/dL (8.6-10.3); Globulin 3.3 g/dL (2-4); Total Bilirubin 0.4 mg/dL (0.2-1.0); Total Protein 6.6 g/dL (6.4-8.9)
[2021-04-17 19:35] LABS: Potassium 5.1 mmol/L (3.5-5.0)
[2021-04-17] MEDS ORDERED: diPHENhydraMINE 25 mg TAB PO PRN (21:26)
[2021-04-17] MEDS ORDERED: Warfarin per PHARMACY **NOTE FOLLOW UP SCH (23:00)
[2021-04-17 23:16] LABS: C Reactive Protein 88.29 mg/L (<8.01)
[2021-04-18] MEDS ORDERED: Albuterol HFA INHALER 8 gm MDI INH PRN (05:54)
[2021-04-18 06:50] LABS: ABS Eosinophils 0.2 10^3/ul (0-0.6); ABS Lymphocytes 0.6 10^3/ul (1.0-4.8); ABS Monocytes 0.8 10^3/ul (0-0.8); ABS Neutrophils 4.7 10^3/ul (1.5-7.7); Eosinophil % 2.6 %; Hematocrit 31 % (35-47); Hemoglobin 10.1 g/dL (12.0-16.0); Mean Corpuscular HGB Conc 33 g/dL (31-36); Mean Corpuscular Hemoglobin 28 pg (27-31); Mean Corpuscular Volume 86 fL (80-97); Mean Platelet Volume 8.4 fL (7.4-10.4); Platelet Count 282 10^3/uL (150-450); Red Blood Count 3.58 10^6 /uL (3.70-4.87); Red Cell Distribution Width 15 % (10-15); White Blood Count 6.2 10^3/uL (3.5-10.8)
[2021-04-18 06:53] LABS: INR 3.35 (0.86-1.15)
[2021-04-18 07:21] LABS: Calcium 9.3 mg/dL (8.6-10.3); Potassium 4.3 mmol/L (3.5-5.0)
[2021-04-18] MEDS: Nystatin TOP POWDER 15 GM BTL TOPICAL SCH ×2 (08:46→22:14)
[2021-04-18] MEDS: Polyethylene Glycol 3350 17 GM PACKET PO SCH (08:46)
[2021-04-18] MEDS: Triamcinolone 0.025% OINT 15 GM TUBE TOPICAL SCH ×2 (08:47→22:14)
[2021-04-18] MEDS ORDERED: HONEY 100% TOPICAL SCH (09:00)
[2021-04-18] MEDS ORDERED: Warfarin - No Order Today **NOTE FOLLOW UP ONE (17:00)
[2021-04-19] MEDS: Saline NASAL SPRAY 0.65% BTL BOTH NARES SCH ×3 (01:49→21:00)
[2021-04-19] MEDS ORDERED: HYDROmorphone 1 MG/1 ML SYRINGE IV ONE (06:30)
[2021-04-19 08:42] LABS: ABS Eosinophils 0.2 10^3/ul (0-0.6); ABS Lymphocytes 0.8 10^3/ul (1.0-4.8); ABS Monocytes 0.7 10^3/ul (0-0.8); ABS Neutrophils 4.6 10^3/ul (1.5-7.7); Eosinophil % 3.6 %; Hematocrit 34 % (35-47); Hemoglobin 10.6 g/dL (12.0-16.0); Lymphocyte % 12.4 %; Mean Corpuscular HGB Conc 31 g/dL (31-36); Mean Corpuscular Hemoglobin 28 pg (27-31); Mean Corpuscular Volume 91 fL (80-97); Mean Platelet Volume 8.4 fL (7.4-10.4); Nucleated Red Blood Cells % 0.3; Platelet Count 254 10^3/uL (150-450); Red Blood Count 3.76 10^6 /uL (3.70-4.87); Red Cell Distribution Width 16 % (10-15); White Blood Count 6.3 10^3/uL (3.5-10.8)
[2021-04-19 08:49] LABS: INR 2.11 (0.86-1.15)
[2021-04-19] MEDS: Polyethylene Glycol 3350 17 GM PACKET PO SCH (09:22)
[2021-04-19] MEDS: Nystatin TOP POWDER 15 GM BTL TOPICAL SCH ×2 (09:27→20:55)
[2021-04-19] MEDS: Triamcinolone 0.025% OINT 15 GM TUBE TOPICAL SCH ×2 (09:28→21:01)
[2021-04-19] MEDS ORDERED: cefTRIAXone 1 gm/50 mL NS BAG 1 GM/50 ML BAG IVPB SCH (10:00)
[2021-04-19 11:44] LABS: Calcium 8.7 mg/dL (8.6-10.3); Potassium 4.6 mmol/L (3.5-5.0)
[2021-04-19 11:50] LABS: C Reactive Protein 98.45 mg/L (<8.01)
[2021-04-20 08:08] LABS: ABS Eosinophils 0.3 10^3/ul (0-0.6); ABS Lymphocytes 0.7 10^3/ul (1.0-4.8); ABS Monocytes 0.7 10^3/ul (0-0.8); ABS Neutrophils 5.1 10^3/ul (1.5-7.7); Eosinophil % 3.9 %; Hematocrit 32 % (35-47); Hemoglobin 10.1 g/dL (12.0-16.0); Lymphocyte % 10.5 %; Mean Corpuscular HGB Conc 32 g/dL (31-36); Mean Corpuscular Hemoglobin 27 pg (27-31); Mean Corpuscular Volume 86 fL (80-97); Mean Platelet Volume 8.1 fL (7.4-10.4); Platelet Count 304 10^3/uL (150-450); Red Blood Count 3.67 10^6 /uL (3.70-4.87); Red Cell Distribution Width 15 % (10-15); White Blood Count 6.8 10^3/uL (3.5-10.8)
[2021-04-20 08:16] LABS: INR 1.88 (0.86-1.15)
[2021-04-20 08:23] LABS: Calcium 8.6 mg/dL (8.6-10.3); Potassium 4.5 mmol/L (3.5-5.0)
[2021-04-20] MEDS: Polyethylene Glycol 3350 17 GM PACKET PO SCH (09:08)
[2021-04-20] MEDS: Saline NASAL SPRAY 0.65% BTL BOTH NARES SCH ×2 (09:11→20:45)
[2021-04-20] MEDS: Nystatin TOP POWDER 15 GM BTL TOPICAL SCH ×2 (09:11→20:45)
[2021-04-20] MEDS: Triamcinolone 0.025% OINT 15 GM TUBE TOPICAL SCH ×2 (09:12→20:46)
[2021-04-20] MEDS ORDERED: Heparin DRIP 25,000 UNITS BAG 25,000 UNITS/500 ML BAG IV SCH (11:15)
[2021-04-20 11:48] LABS: ABS Eosinophils 0.2 10^3/ul (0-0.6); ABS Lymphocytes 0.5 10^3/ul (1.0-4.8); ABS Monocytes 0.5 10^3/ul (0-0.8); ABS Neutrophils 4.9 10^3/ul (1.5-7.7); Eosinophil % 3.7 %; Hematocrit 33 % (35-47); Hemoglobin 10.5 g/dL (12.0-16.0); Lymphocyte % 7.6 %; Mean Corpuscular HGB Conc 32 g/dL (31-36); Mean Corpuscular Hemoglobin 28 pg (27-31); Mean Corpuscular Volume 87 fL (80-97); Mean Platelet Volume 8.3 fL (7.4-10.4); Platelet Count 309 10^3/uL (150-450); Red Blood Count 3.81 10^6 /uL (3.70-4.87); Red Cell Distribution Width 15 % (10-15); White Blood Count 6.2 10^3/uL (3.5-10.8)
[2021-04-20] MEDS ORDERED: Heparin 5000 UNITS/ML 1 mL VIAL IV SCH (12:00)
[2021-04-21 08:28] LABS: C Reactive Protein 38.86 mg/L (<8.01); Calcium 8.3 mg/dL (8.6-10.3); Potassium 4.7 mmol/L (3.5-5.0)
[2021-04-21 08:37] LABS: INR 2.7 (0.86-1.15)
[2021-04-21] MEDS: Polyethylene Glycol 3350 17 GM PACKET PO SCH (10:30)
[2021-04-21] MEDS: Saline NASAL SPRAY 0.65% BTL BOTH NARES SCH ×2 (10:31→20:07)
[2021-04-21] MEDS: Triamcinolone 0.025% OINT 15 GM TUBE TOPICAL SCH ×2 (10:32→20:07)
[2021-04-21] MEDS: Nystatin TOP POWDER 15 GM BTL TOPICAL SCH ×2 (10:32→20:07)
[2021-04-22] MEDS: Polyethylene Glycol 3350 17 GM PACKET PO SCH (07:40)
[2021-04-22] MEDS: Saline NASAL SPRAY 0.65% BTL BOTH NARES SCH ×2 (07:52→19:45)
[2021-04-22 10:03] LABS: Hematocrit 33 % (35-47); Hemoglobin 10.7 g/dL (12.0-16.0); Mean Platelet Volume 8.1 fL (7.4-10.4); Platelet Count 330 10^3/uL (150-450)
[2021-04-22 10:08] LABS: INR 3.38 (0.86-1.15)
[2021-04-22 10:13] LABS: Calcium 8.8 mg/dL (8.6-10.3); Magnesium 1.9 mg/dL (1.9-2.7); Potassium 4.1 mmol/L (3.5-5.0)
[2021-04-22] MEDS: Nystatin TOP POWDER 15 GM BTL TOPICAL SCH ×2 (10:44→19:45)
[2021-04-22] MEDS: Triamcinolone 0.025% OINT 15 GM TUBE TOPICAL SCH ×2 (10:45→19:45)
[2021-04-22] MEDS ORDERED: Warfarin - No Order Today **NOTE FOLLOW UP ONE (13:00)
[2021-04-22] MEDS ORDERED: Warfarin DAILY REMINDER **NOTE FOLLOW UP SCH (17:00)
[2021-04-23 06:59] LABS: Hematocrit 33 % (35-47); Hemoglobin 10.4 g/dL (12.0-16.0); Mean Platelet Volume 7.8 fL (7.4-10.4); Platelet Count 305 10^3/uL (150-450)
[2021-04-23 07:13] LABS: INR 3.25 (0.86-1.15)
[2021-04-23 07:19] LABS: Potassium 4.6 mmol/L (3.5-5.0)
[2021-04-23] MEDS ORDERED: Warfarin - No Order Today **NOTE FOLLOW UP ONE (08:00)
[2021-04-23] MEDS: Polyethylene Glycol 3350 17 GM PACKET PO SCH (08:27)
[2021-04-23] MEDS: Nystatin TOP POWDER 15 GM BTL TOPICAL SCH ×2 (08:28→22:30)
[2021-04-23] MEDS: Saline NASAL SPRAY 0.65% BTL BOTH NARES SCH ×2 (08:28→22:31)
[2021-04-23] MEDS: Triamcinolone 0.025% OINT 15 GM TUBE TOPICAL SCH ×2 (08:30→22:31)
[2021-04-24 07:01] LABS: INR 2.63 (0.86-1.15)
[2021-04-24 07:13] LABS: Calcium 8.7 mg/dL (8.6-10.3); Potassium 4.7 mmol/L (3.5-5.0)
[2021-04-24] MEDS: Polyethylene Glycol 3350 17 GM PACKET PO SCH (08:13)
[2021-04-24] MEDS: Saline NASAL SPRAY 0.65% BTL BOTH NARES SCH ×2 (08:15→20:45)
[2021-04-24] MEDS: Triamcinolone 0.025% OINT 15 GM TUBE TOPICAL SCH ×2 (08:16→20:45)
[2021-04-24] MEDS: Nystatin TOP POWDER 15 GM BTL TOPICAL SCH ×2 (08:16→20:44)
[2021-04-25 06:25] LABS: INR 2.22 (0.86-1.15)
[2021-04-25 07:05] LABS: Potassium 3.9 mmol/L (3.5-5.0)
[2021-04-25] MEDS: Polyethylene Glycol 3350 17 GM PACKET PO SCH (09:26)
[2021-04-25] MEDS: Triamcinolone 0.025% OINT 15 GM TUBE TOPICAL SCH (09:28)
[2021-04-25] MEDS: Nystatin TOP POWDER 15 GM BTL TOPICAL SCH ×2 (09:28→22:08)
[2021-04-25] MEDS: Saline NASAL SPRAY 0.65% BTL BOTH NARES SCH ×2 (09:28→22:09)
[2021-04-25] MEDS: Magnesium Hydroxide LIQ 30 ML UDC PO PRN (14:48)
[2021-04-25] MEDS: Senna TAB 8.6 mg TAB PO PRN (14:54)
[2021-04-25] MEDS ORDERED: Potassium Chlor 20 meq TAB.ER PO ONE ×2 (16:12→16:20)
[2021-04-26] MEDS: Triamcinolone 0.025% OINT 15 GM TUBE TOPICAL SCH ×2 (01:14→08:23)
[2021-04-26 06:12] LABS: Hematocrit 34 % (35-47); Hemoglobin 10.9 g/dL (12.0-16.0); Mean Platelet Volume 7.5 fL (7.4-10.4); Platelet Count 320 10^3/uL (150-450)
[2021-04-26 06:27] LABS: INR 2.82 (0.86-1.15)
[2021-04-26 07:23] LABS: Calcium 8.9 mg/dL (8.6-10.3); Potassium 4.4 mmol/L (3.5-5.0)
[2021-04-26] MEDS: Polyethylene Glycol 3350 17 GM PACKET PO SCH (08:22)
[2021-04-26] MEDS: Nystatin TOP POWDER 15 GM BTL TOPICAL SCH ×2 (08:23→22:30)
[2021-04-26] MEDS: Saline NASAL SPRAY 0.65% BTL BOTH NARES SCH ×2 (08:23→22:30)
[2021-04-26] MEDS ORDERED: Flu vaccine *QUAD* 2021-22* 0.5 ML SYRINGE IM ONE (09:00)
[2021-04-26 12:40] LABS: PCO2 Arterial 70 mmHg (35-45)
[2021-04-26 12:44] LABS: PO2 Arterial 58 mmHg (80-100)
[2021-04-26 16:19] LABS: Rapid COVID-19 Molecular Undetected (Undetected)
[2021-04-26] MEDS: Magnesium Hydroxide LIQ 30 ML UDC PO PRN (22:18)
[2021-04-26] MEDS: Senna TAB 8.6 mg TAB PO PRN (22:18)
[2021-04-27] MEDS: Triamcinolone 0.025% OINT 15 GM TUBE TOPICAL SCH ×2 (00:20→10:08)
[2021-04-27 06:11] LABS: Hematocrit 34 % (35-47); Hemoglobin 10.8 g/dL (12.0-16.0); Mean Corpuscular HGB Conc 32 g/dL (31-36); Mean Corpuscular Hemoglobin 28 pg (27-31); Mean Corpuscular Volume 87 fL (80-97); Platelet Count 330 10^3/uL (150-450); Red Blood Count 3.91 10^6 /uL (3.70-4.87); Red Cell Distribution Width 15 % (10-15); White Blood Count 8.3 10^3/uL (3.5-10.8)
[2021-04-27 06:18] LABS: INR 3.94 (0.86-1.15)
[2021-04-27 06:33] LABS: Calcium 8.9 mg/dL (8.6-10.3); Magnesium 2.6 mg/dL (1.9-2.7); Potassium 4.3 mmol/L (3.5-5.0)
[2021-04-27] MEDS: Polyethylene Glycol 3350 17 GM PACKET PO SCH (10:03)
[2021-04-27] MEDS: Nystatin TOP POWDER 15 GM BTL TOPICAL SCH (10:05)
[2021-04-27] MEDS: Senna TAB 8.6 mg TAB PO PRN (10:07)
[2021-04-27] MEDS: Saline NASAL SPRAY 0.65% BTL BOTH NARES SCH (10:07)
[2021-04-27] MEDS ORDERED: Polyethylene Glycol 3350 17 GM PACKET PO PRN (13:37)
[2021-04-27 13:49] VITALS: BP 126/82
[2021-04-27] MEDS ORDERED: Warfarin - No Order Today **NOTE FOLLOW UP ONE (17:00)
[2021-04-28] MEDS ORDERED: Flu vaccine *QUAD* 2021-22* 0.5 ML SYRINGE IM ONE (09:00)
== END 2021-04-27 14:00 | DRG 607 ==
LOC: ED 17:02 → MED 04-18 13:57 → SUATTDRO 04-18 13:57 → MED 04-18 14:21
PROVIDERS: ADMIT Hospitalist; ATTEND Internal Medicine

== ENCOUNTER 2023-01-03 16:50 | Inpatient (IN) ==
[2023-01-03] MEDS ORDERED: Cefepime 2 GM in Dextrose 2 GM/50 ML BAG IV ONE (17:22)
[2023-01-03] MEDS ORDERED: Lactated Ringers 1000 ml BAG 1,000 ML IV ONE (17:22)
[2023-01-03 18:11] LABS: ABS Eosinophils 0.1 10^3/uL (0.0-0.5); ABS Lymphocytes 0.4 10^3/uL (1.0-4.8); ABS Monocytes 0.7 10^3/uL (0.0-0.9); ABS Neutrophils 7.3 10^3/uL (1.5-7.6); ABS Nucleated RBC 0.01 10^3/ul; Eosinophil % 1.1 %; Hematocrit 39.1 % (35-45); Hemoglobin 12.7 g/dL (11.5-14.3); Lymphocyte % 4.9 %; Mean Corpuscular Hemoglobin 29.4 pg (27-33); Mean Corpuscular Hgb Conc 32.6 g/dL (31-36); Mean Platelet Volume 8.4 fL (7.5-11.2); Nucleated Red Blood Cells % 0.1 /100 WBC (0.0-0.4); Platelet Count 372 10^3/uL (150-450); Red Blood Count 4.34 10^6/uL (3.63-4.92); Red Cell Distribution Width 14.1 % (12-17); White Blood Count 8.6 10^3/uL (3.8-11.8)
[2023-01-03 18:32] LABS: INR 5.68 (0.88-1.18)
[2023-01-03 18:36] LABS: ALT 11 U/L (7-52); Albumin 3.6 g/dL (3.2-5.2); Alkaline Phosphatase 77 U/L (35-149); Blood Urea Nitrogen 24 mg/dL (6-24); C Reactive Protein 73.71 mg/L (<8.01); Calcium 11.2 mg/dL (8.6-10.3); Chloride 89 mmol/L (101-111); Creatinine, Serum 1.27 mg/dL (0.51-0.95); Globulin 3.6 g/dL (2-4); Glucose 121 mg/dL (70-100); Sodium 139 mmol/L (135-145); Total Protein 7.2 g/dL (6.4-8.9); eGFR CKD-EPI 41.4 (>60)
[2023-01-03 18:54] LABS: CO2 Carbon Dioxide 42 mmol/L (22-32)
[2023-01-03 19:38] LABS: Anion Gap 8 mmol/L (2-16)
[2023-01-03 19:50] LABS: Potassium Redraw 3.4 mmol/L (3.5-5.0)
[2023-01-03 19:59] LABS: PCO2 Arterial 59 mmHg (35-45); PO2 Arterial 95 mmHg (80-100)
[2023-01-03] MEDS ORDERED: Potassium Chlor 20 meq TAB.ER PO ONE (20:02)
[2023-01-03 20:28] LABS: Magnesium 1.6 mg/dL (1.9-2.7)
[2023-01-03] MEDS ORDERED: Magnesium Sulfate IV 3 GM in NS 0.9% 100 ml BAG 100 ML IVPB ONE (20:31)
[2023-01-03] MEDS ORDERED: NS 0.9% 1000 ml BAG 1,000 ML IV SCH (21:00)
[2023-01-03] MEDS: KCL 20 MEQ/100 ML IVPREMIX 20 MEQ/100 ML BAG IV SCH ×2 (21:37→23:52)
[2023-01-03] MEDS ORDERED: Warfarin per PHARMACY **NOTE FOLLOW UP SCH (22:00)
[2023-01-03] MEDS ORDERED: Vancomycin 1,500 MG in NS 0.9% 250 ml 250 ML IVPB ONE (22:00)
[2023-01-03] MEDS ORDERED: Vancomycin per Pharmacy 1 EA NOTE FOLLOW UP PRN (23:00)
[2023-01-03] MEDS ORDERED: Vancomycin 1,250 MG in NS 0.9% 250 ml 250 ML IVPB ONE (23:00)
[2023-01-04 02:52] LABS: Urine Appearance Cloudy; Urine Bilirubin Negative (Negative); Urine Blood 2+ (Negative); Urine Color Yellow; Urine Glucose Negative (Negative); Urine Ketones Negative (Negative); Urine Nitrite Negative (Negative); Urine Protein Negative (Negative); Urine Urobilinogen Negative (Negative)
[2023-01-04 02:54] LABS: Urine Amorphous Crystals Present (Absent); Urine Bacteria 1+ (Absent); Urine Red Blood Cell Trace(0-2/hpf) (Absent); Urine Squamous Epithelial Cell Present (Absent); Urine White Blood Cell 3+(>20/hpf) (Absent)
[2023-01-04 06:52] LABS: ABS Eosinophils 0.2 10^3/uL (0.0-0.5); ABS Lymphocytes 0.7 10^3/uL (1.0-4.8); ABS Monocytes 0.6 10^3/uL (0.0-0.9); ABS Neutrophils 5.5 10^3/uL (1.5-7.6); Eosinophil % 3.5 %; Hematocrit 34.8 % (35-45); Hemoglobin 11.3 g/dL (11.5-14.3); Lymphocyte % 10.4 %; Mean Corpuscular Hemoglobin 29.6 pg (27-33); Mean Corpuscular Hgb Conc 32.5 g/dL (31-36); Mean Corpuscular Volume 91.1 fL (80-97); Mean Platelet Volume 8.5 fL (7.5-11.2); Nucleated Red Blood Cells % 0.1 /100 WBC (0.0-0.4); Platelet Count 328 10^3/uL (150-450); Red Blood Count 3.82 10^6/uL (3.63-4.92); Red Cell Distribution Width 14.5 % (12-17); White Blood Count 7.1 10^3/uL (3.8-11.8)
[2023-01-04 07:00] LABS: INR 5.33 (0.88-1.18)
[2023-01-04] MEDS ORDERED: Vancomycin 1,000 MG in NS 0.9% 250 ml 250 ML IVPB ONE (07:00)
[2023-01-04 07:20] LABS: Calcium 9.8 mg/dL (8.6-10.3); Creatinine, Serum 1.15 mg/dL (0.51-0.95); Magnesium 2.4 mg/dL (1.9-2.7); Potassium 3.9 mmol/L (3.5-5.0); eGFR CKD-EPI 46.7 (>60)
[2023-01-04] MEDS: ceFAZolin 1 GM ADVAN 1 GM in NS 0.9% 50 ML 50 ML IVPB SCH ×2 (11:41→17:45)
[2023-01-04] MEDS ORDERED: Warfarin - No Order Today **NOTE FOLLOW UP ONE (17:00)
[2023-01-04] MEDS: Polyethylene Glycol 3350 17 GM PACKET PO PRN (20:04)
[2023-01-04] MEDS: Senna TAB 8.6 mg TAB PO PRN (20:05)
[2023-01-04] MEDS ORDERED: Vancomycin 750 MG in NS 0.9% 250 ML IVPB SCH (21:00)
[2023-01-05] MEDS: ceFAZolin 1 GM ADVAN 1 GM in NS 0.9% 50 ML 50 ML IVPB SCH ×2 (02:07→10:19)
[2023-01-05 06:50] LABS: ABS Basophils 0.1 10^3/uL (0.0-0.1); ABS Eosinophils 0.4 10^3/uL (0.0-0.5); ABS Lymphocytes 0.9 10^3/uL (1.0-4.8); ABS Monocytes 0.7 10^3/uL (0.0-0.9); ABS Neutrophils 6.5 10^3/uL (1.5-7.6); Eosinophil % 4.2 %; Hematocrit 36.4 % (35-45); Hemoglobin 11.8 g/dL (11.5-14.3); Lymphocyte % 10.1 %; Mean Corpuscular Hemoglobin 29.5 pg (27-33); Mean Corpuscular Hgb Conc 32.5 g/dL (31-36); Mean Corpuscular Volume 90.8 fL (80-97); Mean Platelet Volume 8.4 fL (7.5-11.2); Platelet Count 379 10^3/uL (150-450); Red Cell Distribution Width 14.5 % (12-17); White Blood Count 8.5 10^3/uL (3.8-11.8)
[2023-01-05 06:53] LABS: INR 2.64 (0.88-1.18)
[2023-01-05 07:12] LABS: Creatinine, Serum 1.14 mg/dL (0.51-0.95); Magnesium 1.9 mg/dL (1.9-2.7); Potassium 3.6 mmol/L (3.5-5.0); eGFR CKD-EPI 47.2 (>60)
[2023-01-05] MEDS: Cefepime 2 GM in Dextrose 2 GM/50 ML BAG IV SCH ×2 (14:00→23:42)
[2023-01-05] MEDS ORDERED: Lidocaine 4% CREAM (LMX) 5 GM TUBE TOPICAL ONE (15:14)
[2023-01-05] MEDS: Warfarin DAILY REMINDER **NOTE FOLLOW UP SCH (18:21)
[2023-01-05] MEDS: Senna TAB 8.6 mg TAB PO PRN (20:19)
[2023-01-06 07:15] LABS: Calcium 10.5 mg/dL (8.6-10.3); Creatinine, Serum 1.29 mg/dL (0.51-0.95); Magnesium 1.9 mg/dL (1.9-2.7); Potassium 4.1 mmol/L (3.5-5.0); eGFR CKD-EPI 40.7 (>60)
[2023-01-06] MEDS ORDERED: Magnesium Sulfate IV 1GM/100ML 1 GM/100 ML BAG IV ONE (07:20)
[2023-01-06 07:40] LABS: ABS Eosinophils 0.4 10^3/uL (0.0-0.5); ABS Lymphocytes 0.6 10^3/uL (1.0-4.8); ABS Monocytes 0.8 10^3/uL (0.0-0.9); ABS Neutrophils 7.3 10^3/uL (1.5-7.6); ABS Nucleated RBC 0.01 10^3/ul; Eosinophil % 4.2 %; Hematocrit 39.2 % (35-45); Hemoglobin 12.6 g/dL (11.5-14.3); INR 1.84 (0.88-1.18); Lymphocyte % 6.2 %; Mean Corpuscular Hemoglobin 29.6 pg (27-33); Mean Corpuscular Hgb Conc 32.3 g/dL (31-36); Mean Corpuscular Volume 91.9 fL (80-97); Mean Platelet Volume 8.7 fL (7.5-11.2); Nucleated Red Blood Cells % 0.1 /100 WBC (0.0-0.4); Platelet Count 376 10^3/uL (150-450); Red Blood Count 4.26 10^6/uL (3.63-4.92); White Blood Count 9.1 10^3/uL (3.8-11.8)
[2023-01-06] MEDS: Cefepime 2 GM in Dextrose 2 GM/50 ML BAG IV SCH ×2 (12:29→23:23)
[2023-01-06] MEDS: Warfarin DAILY REMINDER **NOTE FOLLOW UP SCH (17:38)
[2023-01-06] MEDS ORDERED: Vancomycin Trough Check NOTE FOLLOW UP ONE (20:30)
[2023-01-06] MEDS: Senna TAB 8.6 mg TAB PO PRN (22:43)
[2023-01-07 05:41] LABS: ABS Basophils 0.1 10^3/uL (0.0-0.1); ABS Eosinophils 0.4 10^3/uL (0.0-0.5); ABS Lymphocytes 0.8 10^3/uL (1.0-4.8); ABS Monocytes 0.7 10^3/uL (0.0-0.9); ABS Neutrophils 6.5 10^3/uL (1.5-7.6); ABS Nucleated RBC 0.01 10^3/ul; Eosinophil % 4.7 %; Hematocrit 35.1 % (35-45); Hemoglobin 11.5 g/dL (11.5-14.3); Lymphocyte % 9.7 %; Mean Corpuscular Hemoglobin 29.6 pg (27-33); Mean Corpuscular Hgb Conc 32.9 g/dL (31-36); Mean Corpuscular Volume 89.8 fL (80-97); Mean Platelet Volume 8.4 fL (7.5-11.2); Nucleated Red Blood Cells % 0.1 /100 WBC (0.0-0.4); Platelet Count 373 10^3/uL (150-450); Red Cell Distribution Width 14.5 % (12-17); White Blood Count 8.5 10^3/uL (3.8-11.8)
[2023-01-07 05:46] LABS: INR 1.67 (0.88-1.18)
[2023-01-07 06:19] LABS: Calcium 10.7 mg/dL (8.6-10.3); Creatinine, Serum 1.05 mg/dL (0.51-0.95); Potassium 4.4 mmol/L (3.5-5.0); eGFR CKD-EPI 52.1 (>60)
[2023-01-07] MEDS: Amoxicillin/Clavul ORALSYR 80 MG/ML (400 MG/5 ML) PO SCH ×2 (11:24→20:39)
[2023-01-07] MEDS: Warfarin DAILY REMINDER **NOTE FOLLOW UP SCH (17:07)
[2023-01-08 06:03] LABS: ABS Basophils 0.1 10^3/uL (0.0-0.1); ABS Eosinophils 0.4 10^3/uL (0.0-0.5); ABS Lymphocytes 0.8 10^3/uL (1.0-4.8); ABS Monocytes 0.8 10^3/uL (0.0-0.9); ABS Nucleated RBC 0.01 10^3/ul; Eosinophil % 3.9 %; Hematocrit 34.2 % (35-45); Hemoglobin 11.2 g/dL (11.5-14.3); Mean Corpuscular Hemoglobin 30.1 pg (27-33); Mean Corpuscular Hgb Conc 32.9 g/dL (31-36); Mean Corpuscular Volume 91.5 fL (80-97); Mean Platelet Volume 8.3 fL (7.5-11.2); Nucleated Red Blood Cells % 0.1 /100 WBC (0.0-0.4); Platelet Count 334 10^3/uL (150-450); Red Blood Count 3.73 10^6/uL (3.63-4.92); Red Cell Distribution Width 14.6 % (12-17); White Blood Count 9.1 10^3/uL (3.8-11.8)
[2023-01-08 06:08] LABS: INR 1.58 (0.88-1.18)
[2023-01-08 06:14] LABS: Calcium 10.2 mg/dL (8.6-10.3); Creatinine, Serum 0.95 mg/dL (0.51-0.95); Magnesium 1.9 mg/dL (1.9-2.7); Potassium 4.2 mmol/L (3.5-5.0); eGFR CKD-EPI 58.7 (>60)
[2023-01-08] MEDS: Amoxicillin/Clavul ORALSYR 80 MG/ML (400 MG/5 ML) PO SCH ×2 (09:20→21:17)
[2023-01-08 11:18] LABS: PCO2 Arterial 62 mmHg (35-45); PO2 Arterial 99 mmHg (80-100)
[2023-01-08] MEDS: Polyethylene Glycol 3350 17 GM PACKET PO PRN (21:16)
[2023-01-08] MEDS: Warfarin DAILY REMINDER **NOTE FOLLOW UP SCH (21:18)
[2023-01-09 06:33] LABS: ABS Basophils 0.1 10^3/uL (0.0-0.1); ABS Eosinophils 0.3 10^3/uL (0.0-0.5); ABS Lymphocytes 0.7 10^3/uL (1.0-4.8); ABS Monocytes 0.8 10^3/uL (0.0-0.9); ABS Neutrophils 6.9 10^3/uL (1.5-7.6); ABS Nucleated RBC 0.01 10^3/ul; Eosinophil % 3.8 %; Hematocrit 34.6 % (35-45); Hemoglobin 11.4 g/dL (11.5-14.3); Lymphocyte % 8.4 %; Mean Corpuscular Hemoglobin 30.1 pg (27-33); Mean Corpuscular Hgb Conc 32.9 g/dL (31-36); Mean Corpuscular Volume 91.3 fL (80-97); Mean Platelet Volume 8.3 fL (7.5-11.2); Nucleated Red Blood Cells % 0.1 /100 WBC (0.0-0.4); Platelet Count 342 10^3/uL (150-450); Red Blood Count 3.79 10^6/uL (3.63-4.92); Red Cell Distribution Width 14.3 % (12-17); White Blood Count 8.9 10^3/uL (3.8-11.8)
[2023-01-09 06:35] LABS: INR 1.87 (0.88-1.18)
[2023-01-09 07:00] LABS: Calcium 10.6 mg/dL (8.6-10.3); Creatinine, Serum 0.83 mg/dL (0.51-0.95); Magnesium 1.9 mg/dL (1.9-2.7); Potassium 4.2 mmol/L (3.5-5.0)
[2023-01-09] MEDS ORDERED: Magnesium Hydroxide LIQ 30 ML UDC PO ONE (07:55)
[2023-01-09] MEDS: Amoxicillin/Clavul ORALSYR 80 MG/ML (400 MG/5 ML) PO SCH (08:54)
[2023-01-09] MEDS ORDERED: Nystatin TOP POWDER 15 GM BTL TOPICAL SCH (09:00)
[2023-01-09 10:12] VITALS: BP 113/72
[2023-01-09 11:15] LABS: Rapid COVID-19 Molecular Undetected (Undetected)
== END 2023-01-09 13:10 | DRG 872 ==
LOC: ED 16:50 → EDHOLD 16:50 → SUATTDRO 19:53 → EDHOLD 21:01 → MED 23:38 → SUATTDRO 01-04 09:00
PROVIDERS: ADMIT Student in an Organized Health Care Education/Training Program; ATTEND Hospitalist

== ENCOUNTER 2023-01-28 14:29 | Inpatient (IN) ==
[2023-01-28 16:25] LABS: ABS Lymphocytes 0.3 10^3/uL (1.0-4.8); ABS Neutrophils 14.5 10^3/uL (1.5-7.6); ABS Nucleated RBC 0.01 10^3/ul; Eosinophil % 0.3 %; Hemoglobin 10.8 g/dL (11.5-14.3); Lymphocyte % 1.8 %; Mean Corpuscular Hemoglobin 29.7 pg (27-33); Mean Corpuscular Hgb Conc 32.6 g/dL (31-36); Mean Platelet Volume 8.2 fL (7.5-11.2); Nucleated Red Blood Cells % 0.1 /100 WBC (0.0-0.4); Platelet Count 421 10^3/uL (150-450); Red Blood Count 3.63 10^6/uL (3.63-4.92); Red Cell Distribution Width 14.5 % (12-17); White Blood Count 15.9 10^3/uL (3.8-11.8)
[2023-01-28 16:29] LABS: INR 4.53 (0.88-1.18)
[2023-01-28 16:40] LABS: Albumin 2.9 g/dL (3.2-5.2); Albumin/Globulin Ratio 0.8 (1-3); Calcium 11.3 mg/dL (8.6-10.3); Creatinine, Serum 1.42 mg/dL (0.51-0.95); Globulin 3.6 g/dL (2-4); Potassium 4.3 mmol/L (3.5-5.0); Total Bilirubin 0.4 mg/dL (0.2-1.0); Total Protein 6.5 g/dL (6.4-8.9); eGFR CKD-EPI 36.2 (>60)
[2023-01-28 17:14] LABS: C Reactive Protein 290.01 mg/L (<8.01)
[2023-01-28] MEDS ORDERED: Vancomycin 1,250 MG in NS 0.9% 250 ml 250 ML IVPB ONE (17:29)
[2023-01-28] MEDS ORDERED: Cefepime 2 GM in Dextrose 2 GM/50 ML BAG IV ONE (17:29)
[2023-01-28 17:54] LABS: High Sensitivity Troponin 1 Hr 21 pg/mL (<15)
[2023-01-28 18:04] LABS: Urine Appearance Turbid; Urine Bilirubin Negative (Negative); Urine Blood 1+ (Negative); Urine Color Amber; Urine Glucose Negative (Negative); Urine Ketones Negative (Negative); Urine Nitrite Negative (Negative); Urine Protein 1+(30 mg/dL) (Negative); Urine Specific Gravity 1.013 (1.002-1.030); Urine Urobilinogen Negative (Negative)
[2023-01-28 18:29] LABS: Urine Bacteria Absent (Absent); Urine Red Blood Cell 1+(3-5/hpf) (Absent); Urine Squamous Epithelial Cell Present (Absent); Urine White Blood Cell 3+(>20/hpf) (Absent)
[2023-01-28] MEDS ORDERED: Lactated Ringers 1000 ml BAG 1,000 ML IV SCH (22:00)
[2023-01-28] MEDS ORDERED: Lactated Ringers 1000 ml BAG 1,000 ML IV ONE (22:03)
[2023-01-28] MEDS ORDERED: Ondansetron 4 mg VIAL 2 MG/ML 2 ml VIAL IV PRN (22:11)
[2023-01-28] MEDS ORDERED: Magnesium Hydroxide LIQ 30 ML UDC PO PRN ×2 (22:11→22:37)
[2023-01-28] MEDS ORDERED: Acetaminophen IV 1 GM/100ML 1,000 MG/100 ML BAG IV PRN (22:36)
[2023-01-28 22:58] LABS: Calcium 10.7 mg/dL (8.6-10.3); Creatinine, Serum 1.43 mg/dL (0.51-0.95); Potassium 4.3 mmol/L (3.5-5.0); eGFR CKD-EPI 35.9 (>60)
[2023-01-29] MEDS ORDERED: Vancomycin per Pharmacy 1 EA NOTE FOLLOW UP SCH (01:00)
[2023-01-29] MEDS ORDERED: Lactated Ringers 1000 ml BAG 1,000 ML IV ONE ×3 (01:00→08:50)
[2023-01-29 07:02] LABS: Hematocrit 28.3 % (35-45); Hemoglobin 9.4 g/dL (11.5-14.3); Mean Corpuscular Hemoglobin 30.4 pg (27-33); Mean Corpuscular Hgb Conc 33.2 g/dL (31-36); Mean Corpuscular Volume 91.5 fL (80-97); Mean Platelet Volume 7.8 fL (7.5-11.2); Platelet Count 334 10^3/uL (150-450); Red Cell Distribution Width 14.7 % (12-17); White Blood Count 12.1 10^3/uL (3.8-11.8)
[2023-01-29 07:17] LABS: Calcium 10.3 mg/dL (8.6-10.3); Creatinine, Serum 1.24 mg/dL (0.51-0.95); Magnesium 1.8 mg/dL (1.9-2.7); Potassium 4.4 mmol/L (3.5-5.0); eGFR CKD-EPI 42.4 (>60)
[2023-01-29 07:20] LABS: INR 4.04 (0.88-1.18)
[2023-01-29] MEDS ORDERED: cefTRIAXone 2 gm/50 mL D5W 2 GM/50 ML BAG IV SCH ×2 (08:00→18:00)
[2023-01-29 08:03] LABS: ABS Eosinophils 0.3 10^3/uL (0.0-0.5); ABS Lymphocytes 0.5 10^3/uL (1.0-4.8); ABS Monocytes 0.6 10^3/uL (0.0-0.9); ABS Neutrophils 10.7 10^3/uL (1.5-7.6); Eosinophil % 2.3 %
[2023-01-29] MEDS: Nystatin TOP POWDER 15 GM BTL TOPICAL SCH (08:24)
[2023-01-29] MEDS: Polyethylene Glycol 3350 17 GM PACKET PO SCH (08:37)
[2023-01-29] MEDS ORDERED: ZOSYN 3.375 GM x ONE DOSE over 30 miuntes IV (10:00)
[2023-01-29] MEDS ORDERED: Zosyn per Pharmacy NOTE FOLLOW UP SCH (12:00)
[2023-01-29] MEDS ORDERED: HYDROmorphone 1 MG/1 ML SYRINGE IV PRN (12:04)
[2023-01-29] MEDS ORDERED: HYDROmorphone 0.5 MG/0.5 ML SYRINGE IV PRN (12:06)
[2023-01-29] MEDS: Senna TAB 8.6 mg TAB PO SCH ×2 (12:15→21:16)
[2023-01-29] MEDS ORDERED: Phytonadione Oral Solution 5 MG/25 ML UDC PO ONE (13:09)
[2023-01-29] MEDS ORDERED: HYDROmorphone 1 MG/1 ML SYRINGE IV SLOW PU ONE (13:59)
[2023-01-29] MEDS ORDERED: ZOSYN 3.375 GM Q8H per EXTENDED INFUSION IV SCH (14:00)
[2023-01-29] MEDS ORDERED: Gadoteridol (CONTRAST) 279.3 MG/ML 10 ML IV ONE (14:41)
[2023-01-29] MEDS ORDERED: Vancomycin 750 MG in NS 0.9% 250 ML IVPB SCH (16:00)
[2023-01-29] MEDS: HYDROmorphone 1 MG/1 ML SYRINGE IV PRN ×2 (16:24→18:34)
[2023-01-29] MEDS: ZOSYN 3.375 GM Q8H per EXTENDED INFUSION IV SCH ×2 (16:25→23:19)
[2023-01-30] MEDS: HYDROmorphone 1 MG/1 ML SYRINGE IV PRN ×8 (02:09→22:57)
[2023-01-30] MEDS: Dakins Solution 0.25% (1/2 STR.) 473 ML BTL TOPICAL SCH ×3 (03:17→23:46)
[2023-01-30 06:09] LABS: Hematocrit 28.1 % (35-45); Hemoglobin 9.3 g/dL (11.5-14.3); Mean Corpuscular Hemoglobin 30.1 pg (27-33); Mean Corpuscular Volume 91.3 fL (80-97); Mean Platelet Volume 8.1 fL (7.5-11.2); Platelet Count 333 10^3/uL (150-450); Red Blood Count 3.08 10^6/uL (3.63-4.92); Red Cell Distribution Width 14.8 % (12-17); White Blood Count 11.6 10^3/uL (3.8-11.8)
[2023-01-30 06:17] LABS: INR 1.78 (0.88-1.18)
[2023-01-30] MEDS: ZOSYN 3.375 GM Q8H per EXTENDED INFUSION IV SCH ×3 (06:22→23:45)
[2023-01-30 06:26] LABS: Albumin 2.4 g/dL (3.2-5.2); Calcium 10.3 mg/dL (8.6-10.3); Magnesium 1.8 mg/dL (1.9-2.7); Potassium 3.8 mmol/L (3.5-5.0); Total Bilirubin 0.5 mg/dL (0.2-1.0)
[2023-01-30 06:32] LABS: Albumin/Globulin Ratio 0.8 (1-3); Creatinine, Serum 1.06 mg/dL (0.51-0.95); Globulin 2.9 g/dL (2-4); Phosphorus 2.8 mg/dL (2.5-5.0); Total Protein 5.3 g/dL (6.4-8.9); eGFR CKD-EPI 51.2 (>60)
[2023-01-30] MEDS ORDERED: Magnesium Sulfate 2 gm BAG 2 GM/50 ML BAG IVPB ONE (07:27)
[2023-01-30] MEDS ORDERED: Phytonadione Oral Solution 5 MG/25 ML UDC PO ONE (07:31)
[2023-01-30] MEDS: Polyethylene Glycol 3350 17 GM PACKET PO SCH (08:51)
[2023-01-30] MEDS: Senna TAB 8.6 mg TAB PO SCH ×2 (08:52→19:57)
[2023-01-30] MEDS: Nystatin TOP POWDER 15 GM BTL TOPICAL SCH ×2 (08:52→23:48)
[2023-01-30] MEDS: Lactated Ringers 1000 ml BAG 1,000 ML IV SCH ×2 (10:43→17:26)
[2023-01-30 13:01] LABS: INR 1.42 (0.88-1.18)
[2023-01-30] MEDS ORDERED: Enoxaparin 40 MG/0.4 ML SYR SUBCUT ONE (17:51)
[2023-01-31] MEDS: Lactated Ringers 1000 ml BAG 1,000 ML IV SCH ×2 (00:15→07:40)
[2023-01-31] MEDS: HYDROmorphone 1 MG/1 ML SYRINGE IV PRN ×7 (00:17→13:19)
[2023-01-31] MEDS: ZOSYN 3.375 GM Q8H per EXTENDED INFUSION IV SCH ×3 (05:06→21:45)
[2023-01-31 06:19] LABS: Hematocrit 26.1 % (35-45); Hemoglobin 8.7 g/dL (11.5-14.3); Mean Corpuscular Hemoglobin 30.2 pg (27-33); Mean Corpuscular Hgb Conc 33.1 g/dL (31-36); Mean Corpuscular Volume 91.3 fL (80-97); Mean Platelet Volume 7.6 fL (7.5-11.2); Platelet Count 314 10^3/uL (150-450); Red Blood Count 2.86 10^6/uL (3.63-4.92); Red Cell Distribution Width 14.7 % (12-17); White Blood Count 8.7 10^3/uL (3.8-11.8)
[2023-01-31 06:33] LABS: INR 1.2 (0.88-1.18)
[2023-01-31 06:35] LABS: Calcium 9.5 mg/dL (8.6-10.3); Creatinine, Serum 0.9 mg/dL (0.51-0.95); Magnesium 1.9 mg/dL (1.9-2.7); Phosphorus 2.8 mg/dL (2.5-5.0); Potassium 3.6 mmol/L (3.5-5.0); eGFR CKD-EPI 62.3 (>60)
[2023-01-31 06:46] LABS: Calcium (PTH Intact) 9.3 mg/dL (8.6-10.3)
[2023-01-31] MEDS: Polyethylene Glycol 3350 17 GM PACKET PO SCH (09:09)
[2023-01-31] MEDS: Senna TAB 8.6 mg TAB PO SCH (09:09)
[2023-01-31] MEDS ORDERED: fentaNYL PATCH 75 MCG/HR 1 PATCH TRANSDERM SCH (10:00)
[2023-01-31] MEDS: Dakins Solution 0.25% (1/2 STR.) 473 ML BTL TOPICAL SCH (10:21)
[2023-01-31] MEDS: Nystatin TOP POWDER 15 GM BTL TOPICAL SCH (10:21)
[2023-01-31] MEDS ORDERED: HYDROmorphone 1 MG/1 ML SYRINGE IV PRN ×2 (15:13→15:14)
[2023-01-31] MEDS ORDERED: Vancomycin Trough Check NOTE FOLLOW UP ONE (15:30)
[2023-01-31] MEDS ORDERED: Enoxaparin 100 MG/ML SYR SUBCUT ONE (15:53)
[2023-01-31] MEDS: fentaNYL Patch Check Q Shift NOTE FOLLOW UP SCH (19:16)
[2023-01-31] MEDS ORDERED: Naloxone Nasal Spray 4 MG/0.1 ML NASAL.SPR INTRANASAL PRN (19:40)
[2023-02-01] MEDS: Senna TAB 8.6 mg TAB PO SCH ×3 (01:23→20:01)
[2023-02-01] MEDS: HYDROmorphone 1 MG/1 ML SYRINGE IV PRN ×9 (02:55→23:24)
[2023-02-01] MEDS: Acetaminophen IV 1 GM/100ML 1,000 MG/100 ML BAG IV PRN (04:04)
[2023-02-01 05:53] LABS: Hematocrit 27.3 % (35-45); Mean Corpuscular Hemoglobin 30.4 pg (27-33); Mean Corpuscular Hgb Conc 33.2 g/dL (31-36); Mean Corpuscular Volume 91.6 fL (80-97); Mean Platelet Volume 7.8 fL (7.5-11.2); Platelet Count 338 10^3/uL (150-450); Red Blood Count 2.98 10^6/uL (3.63-4.92); Red Cell Distribution Width 14.9 % (12-17); White Blood Count 7.8 10^3/uL (3.8-11.8)
[2023-02-01] MEDS: ZOSYN 3.375 GM Q8H per EXTENDED INFUSION IV SCH ×3 (06:05→22:00)
[2023-02-01 06:10] LABS: Calcium 9.6 mg/dL (8.6-10.3); Creatinine, Serum 1.03 mg/dL (0.51-0.95); Potassium 3.5 mmol/L (3.5-5.0)
[2023-02-01] MEDS: fentaNYL Patch Check Q Shift NOTE FOLLOW UP SCH ×2 (06:46→19:04)
[2023-02-01] MEDS ORDERED: Potassium Chlor 20 meq TAB.ER PO ONE (07:11)
[2023-02-01] MEDS: Nystatin TOP POWDER 15 GM BTL TOPICAL SCH (08:59)
[2023-02-01] MEDS: Polyethylene Glycol 3350 17 GM PACKET PO SCH (09:02)
[2023-02-01] MEDS: Dakins Solution 0.25% (1/2 STR.) 473 ML BTL TOPICAL SCH (12:05)
[2023-02-01] MEDS ORDERED: HYDROmorphone 0.5 MG/0.5 ML SYRINGE ONE (15:03)
[2023-02-01] MEDS: Enoxaparin 80 MG/0.8 ML SYR SUBCUT SCH (16:05)
[2023-02-02] MEDS: HYDROmorphone 1 MG/1 ML SYRINGE IV PRN ×3 (02:14→08:39)
[2023-02-02] MEDS: Enoxaparin 80 MG/0.8 ML SYR SUBCUT SCH ×2 (04:54→18:13)
[2023-02-02] MEDS: ZOSYN 3.375 GM Q8H per EXTENDED INFUSION IV SCH ×3 (05:43→22:37)
[2023-02-02 06:59] LABS: Hematocrit 28.4 % (35-45); Hemoglobin 9.5 g/dL (11.5-14.3); Mean Corpuscular Hemoglobin 30.9 pg (27-33); Mean Corpuscular Hgb Conc 33.4 g/dL (31-36); Mean Corpuscular Volume 92.4 fL (80-97); Mean Platelet Volume 8.1 fL (7.5-11.2); Platelet Count 363 10^3/uL (150-450); Red Blood Count 3.07 10^6/uL (3.63-4.92); Red Cell Distribution Width 14.5 % (12-17)
[2023-02-02 07:14] LABS: Calcium 9.9 mg/dL (8.6-10.3); Creatinine, Serum 0.9 mg/dL (0.51-0.95); Magnesium 1.6 mg/dL (1.9-2.7); Phosphorus 2.7 mg/dL (2.5-5.0); eGFR CKD-EPI 62.3 (>60)
[2023-02-02] MEDS: fentaNYL Patch Check Q Shift NOTE FOLLOW UP SCH ×2 (07:28→18:54)
[2023-02-02] MEDS ORDERED: Magnesium Sulf 4 GM/100 ML IV 4,000 MG/100 ML BAG IVPB ONE (07:34)
[2023-02-02] MEDS: Senna TAB 8.6 mg TAB PO SCH ×2 (10:32→19:54)
[2023-02-02] MEDS: Polyethylene Glycol 3350 17 GM PACKET PO SCH (10:33)
[2023-02-02] MEDS: Nystatin TOP POWDER 15 GM BTL TOPICAL SCH (10:33)
[2023-02-02] MEDS: Dakins Solution 0.25% (1/2 STR.) 473 ML BTL TOPICAL SCH (10:33)
[2023-02-03] MEDS: ZOSYN 3.375 GM Q8H per EXTENDED INFUSION IV SCH ×3 (05:48→23:25)
[2023-02-03] MEDS: Enoxaparin 80 MG/0.8 ML SYR SUBCUT SCH ×2 (05:51→14:56)
[2023-02-03 06:16] LABS: Calcium 10.1 mg/dL (8.6-10.3); Creatinine, Serum 0.84 mg/dL (0.51-0.95); Magnesium 2.1 mg/dL (1.9-2.7); eGFR CKD-EPI 67.6 (>60)
[2023-02-03] MEDS: fentaNYL Patch Check Q Shift NOTE FOLLOW UP SCH (06:48)
[2023-02-03] MEDS ORDERED: Albuterol/Ipratropium NEB.SOL (2.5/0.5 MG) 3 ML NEB.SOLN INH PRN (08:28)
[2023-02-03] MEDS ORDERED: Albuterol/Ipratropium NEB.SOL (2.5/0.5 MG) 3 ML NEB.SOLN ONE (08:29)
[2023-02-03] MEDS ORDERED: Furosemide 20 mg/2 ml IV VIAL IV ONE ×2 (08:29→20:08)
[2023-02-03] MEDS: Nystatin TOP POWDER 15 GM BTL TOPICAL SCH (08:52)
[2023-02-03] MEDS: Dakins Solution 0.25% (1/2 STR.) 473 ML BTL TOPICAL SCH (08:53)
[2023-02-03] MEDS ORDERED: fentaNYL PATCH 50 MCG/HR 1 PATCH TRANSDERM SCH (09:00)
[2023-02-03] MEDS: Polyethylene Glycol 3350 17 GM PACKET PO SCH (09:35)
[2023-02-03] MEDS: Senna TAB 8.6 mg TAB PO SCH ×2 (09:35→23:14)
[2023-02-03] MEDS ORDERED: Naloxone 0.4 mg VIAL 0.4 mg/ml 1 ml VIAL IV PUSH ONE ×3 (16:56→20:08)
[2023-02-03] MEDS ORDERED: fentaNYL Patch Check Q Shift NOTE FOLLOW UP SCH (19:00)
[2023-02-04] MEDS: Acetaminophen IV 1 GM/100ML 1,000 MG/100 ML BAG IV PRN ×2 (03:36→08:58)
[2023-02-04] MEDS: ZOSYN 3.375 GM Q8H per EXTENDED INFUSION IV SCH (05:40)
[2023-02-04 05:43] LABS: Hematocrit 27.6 % (35-45); Hemoglobin 9.1 g/dL (11.5-14.3); Mean Corpuscular Hemoglobin 30.5 pg (27-33); Mean Corpuscular Hgb Conc 32.9 g/dL (31-36); Mean Corpuscular Volume 92.7 fL (80-97); Mean Platelet Volume 7.7 fL (7.5-11.2); Platelet Count 338 10^3/uL (150-450); Red Blood Count 2.98 10^6/uL (3.63-4.92); Red Cell Distribution Width 14.6 % (12-17); White Blood Count 11.2 10^3/uL (3.8-11.8)
[2023-02-04 06:00] LABS: Calcium 9.6 mg/dL (8.6-10.3); Creatinine, Serum 1.08 mg/dL (0.51-0.95); Potassium 3.9 mmol/L (3.5-5.0)
[2023-02-04] MEDS ORDERED: Furosemide 20 mg/2 ml IV VIAL IV ONE ×3 (06:17→07:08)
[2023-02-04] MEDS ORDERED: Furosemide 20 mg/2 ml IV VIAL ONE (06:20)
[2023-02-04] MEDS: Vancomycin 1,250 MG in NS 0.9% 250 ml 250 ML IVPB ONE ×2 (07:50→13:43)
[2023-02-04] MEDS ORDERED: Vancomycin per Pharmacy 1 EA NOTE FOLLOW UP SCH (08:00)
[2023-02-04] MEDS: Polyethylene Glycol 3350 17 GM PACKET PO SCH (08:36)
[2023-02-04] MEDS: Senna TAB 8.6 mg TAB PO SCH (08:36)
[2023-02-04] MEDS: Dakins Solution 0.25% (1/2 STR.) 473 ML BTL TOPICAL SCH (08:37)
[2023-02-04] MEDS: Nystatin TOP POWDER 15 GM BTL TOPICAL SCH (08:58)
[2023-02-04 12:26] LABS: Albumin 1.7 g/dL (3.4-4.7); Flag, M-protein Isotype Negative (Negative); Total Protein 4.7 g/dL (6.3 - 7.9)
[2023-02-04] MEDS ORDERED: Lorazepam PYXIS KEY PRN (13:36)
[2023-02-04] MEDS ORDERED: LORazepam 2 mg VIAL 1 ml IV PUSH PRN (13:36)
[2023-02-04 13:45] VITALS: BP 134/75
[2023-02-04] MEDS: HYDROmorphone 1 MG/1 ML SYRINGE IV PRN ×3 (16:24→23:51)
[2023-02-04] MEDS: Atropine 1% (ORAL/SL) 15 ML BTL SL PRN (21:16)
[2023-02-05] MEDS: HYDROmorphone 1 MG/1 ML SYRINGE IV PRN ×3 (04:13→10:56)
[2023-02-05] MEDS ORDERED: Vancomycin 1000 MG in NS 0.9% 250 ML IVPB ONE (08:00)
[2023-02-05] MEDS: Atropine 1% (ORAL/SL) 15 ML BTL SL PRN (08:06)
[2023-02-07] MEDS ORDERED: Vancomycin Trough Check NOTE FOLLOW UP ONE (07:30)
== END 2023-02-05 13:02 | disposition hospice, inpatient (51) | DRG 871 ==
LOC: ED 14:29 → SUATTDRO 22:11 → EDHOLD 22:11 → MED 01-29 10:26
PROVIDERS: ADMIT Internal Medicine; ATTEND Hospitalist